=== PATIENT | male | born 1940 | race Caucasian/White ===

== ENCOUNTER 2018-07-27 10:30 | Outpatient (RCR) | payer MEDICARE, OTHER, SELFPAY ==
[2018-07-07 11:36] VITALS: BP 148/88; PULSE 90; RESP 18; TEMP 36.7
--- NOTE | 2018-07-07 12:16 | HP.PCM_ITS ---
(1) Traumatic open wound of right lower leg with delayed healing Status: Chronic Current Visit: Yes Code(s): S81.801D - Unspecified open wound, right lower leg, subsequent encounter (2) Ulcer of left lower extremity, limited to breakdown of skin Status: Chronic Current Visit: Yes Code(s): L97.921 - Non-pressure chronic ulcer of unspecified part of left lower leg limited to breakdown of skin (3) Type 2 diabetes mellitus Status: Chronic Current Visit: Yes Code(s): E11.9 - Type 2 diabetes mellitus without complications (4) Bilateral lower extremity edema Status: Chronic Current Visit: Yes Code(s): R60.0 - Localized edema History of Present Illness Chief Complaint: Nonhealing right lower extremity wound (traumatic). Left lower extremity ulcer. History of Wound: Mr. Church is a 78-year-old with past medical history as stated above who presented to the wound center due to delayed healing of his traumatic right lower extremity wound. Said to have started about a month ago when he fell off his bed and bumped his hutchinson against his walker and dresser. He was subsequently seen in the emergency room and had stitches applied with some part of the wound healing however the medial half has failed to heal. He states that at his facility silver dressing has been applied daily with some form of compression. He denies significant pain or drainage from the wound. He is unsure of his diabetes control. He feels well otherwise and denies chills, fever or feeling of unwell. Past Medical History Past Medical History: Chronic Problems Traumatic open wound of right lower leg with delayed healing (Chronic) Ulcer of left lower extremity, limited to breakdown of skin (Chronic) Type 2 diabetes mellitus (Chronic) Bilateral lower extremity edema (Chronic) Allergies/Adverse Reactions: Allergies No Known Allergies Allergy (Verified 07/07/18 11:36) Review of Systems Constitutional: Denies: Anorexia, Chills, Fever Eyes: Denies: Blurred vision HEENT: Denies: Difficulty Swallowing Cardiovascular: Denies: Chest Pressure Respiratory: Denies: Hemoptysis Gastrointestinal: Denies: Hematemesis, Vomiting Skin: Denies: Jaundice - Physical Exam Vital Signs Temp Pulse Resp BP 98.1 F 90 18 148/88 H 07/07/18 11:36 07/07/18 11:36 07/07/18 11:36 07/07/18 11:36 General: Alert, Oriented x3, Cooperative, No apparent distress HEENT: Atraumatic, Normocephalic Oral: Moist Mucosa Neck: Supple Lungs: Normal air movement Abdomen: Non Tender, Obese Extremities: No cyanosis, Edema Wound Measurements and Assessment WC - Nurse 1 - General Ulcer Measurement Start: 07/07/18 11:36 Freq: Status: Active Protocol: Activity Type Activity Date Activity User E-Sign Co-Sign Detail Recorded Client Recorded Date Recorded By Document 07/07/18 11:36 RB [id number] 07/07/18 11:40 RB 07/07/18 11:36 Wound Center Nurse 1 [Ulcer Assessment] 2. L medial LE -Combined with other wound No -Current Size (cm) - Length 1 -Current Size (cm) - Width 1 -Current Size (cm) - Depth 0.1 -Total Square Cm 1 -Photo Taken Yes -Tunneling No -Undermining/Tunneling No -Circular Undermining No -Exudate Amt Small -Exudate Type Serosanguineous -Wound Margin Distinct, Outline Attached -Granulation Amt Medium (34-66%) -Granulation Quality [place] -Slough/Fibrin Yes -Necrosis Amt Small (1-33%) -Necrotic Tissue Type Adherent Slough -Structure Exposed N/A -Texture (Mariia-wound Skin Appearance) Assessed Localized Edema -Moisture (Mariia-wound Skin Appearance Weeping ) -Color (Mariia-wound Skin Appearance) Assessed Hemosiderin Staining -Ulcer Cleansing Wound Cleanser -Foul Odor after Cleansing No -Anesthetic Used 5% Lidocaine Gel 1. R ant hutchinson -Combined with other wound No -Current Size (cm) - Length 3.7 -Current Size (cm) - Width 5 -Current Size (cm) - Depth 1.4 -Total Square Cm 18.5 -Photo Taken Yes -Tunneling No -Undermining/Tunneling No -Circular Undermining No -Exudate Amt Medium -Exudate Type Serosanguineous -Wound Margin Distinct, Outline Attached -Granulation Amt Medium (34-66%) -Granulation Quality [place] -Slough/Fibrin Yes -Necrosis Amt Large (67-100%) -Necrotic Tissue Type Adherent Slough -Structure Exposed N/A -Texture (Mariia-wound Skin Appearance) Assessed Localized Edema -Moisture (Mariia-wound Skin Appearance Weeping ) -Color (Mariia-wound Skin Appearance) Hemosiderin Staining -Temperature (Mariia-wound Skin No Abnormality Appearance) (Pt Warm) -Tenderness on Palpation (Mariia-wound No Skin Appearance) -Ulcer Cleansing Wound Cleanser -Foul Odor after Cleansing No -Anesthetic Used 5% Lidocaine Gel [Edema Assessment] -Lower Limb Edema Present Yes -Right Calf (cm) 49.5 -Right Ankle (cm) 27 -Left Calf (cm) 46.5 -Left Ankle (cm) 26 Musculoskeletal: No Muscle Wasting Neurological: Cranial nerves II-XII grossly intact Psych/Mental Status: Normal Affect Debridement Note Wound debrided: Right hutchinson Wound Grade/Stage: Stage III Type of Debridement: Excisional debridement Anesthesia Used: 4% Lidocaine Solution Depth: Down to and including healthy tissue, in the subcutaneous layer Percentage of wound debrided: 100 Instrument Used: 3mm curette Tissue Removed: Slough and devitalized tissue Severity: Fat Layer Exposed Amount of bleeding with debridement: Mild Bleeding Controlled with: Pressure Patient tolerated procedure well - Additional Wound Wound debrided: Left medial lower extremity Wound Grade/Stage: Page 2 Type of Debridement: Excisional debridement Anesthesia Used: 4% Lidocaine Solution Depth: Down to and including healthy tissue Percentage of wound debrided: 100 Instrument Used: 3mm curette Tissue Removed: Slough and devitalized tissue Severity: Limited To Skin Breakdown Amount of bleeding with debridement: Mild Bleeding Controlled with: Pressure Patient tolerated procedure: Patient tolerated procedure well Assessment/Plan Active Problems Traumatic open wound of right lower leg with delayed healing (Chronic) Ulcer of left lower extremity, limited to breakdown of skin (Chronic) Type 2 diabetes mellitus (Chronic) Bilateral lower extremity edema (Chronic) Assessment: Same as above. Plan: Debridement done as documented above. Procedure was well-tolerated. Cultures taken. Venous and arterial studies also ordered. Labs requested. Santyl to the right lower extremity and Aquacel extra to the left lower extremity both with Adaptic over top. Change daily. Surepress for edema management. Advised to elevate lower extremity when seated in bed. Increased protein intake recommended. He appears to be on some protein supplement already. Exercise and weight loss recommended. Optimal blood sugar control also recommended. Advised to follow-up with his primary care physician. His questions were answered and was advised to call with any further questions or concerns. Follow-up in 1 week. This note was generated with [employer] software. It may contain incorrect words, spelling, and punctuation that were no t noted in checking the note before signing.
--- NOTE | 2018-07-26 08:11 | VDLE_ITS ---
Reason For Study: ulcer, edema RIGHT LEFT CFV is compressible, spontaneous, phasic, FV is compressible, spontaneous, phasic, competent and demonstrates normal competent and demonstrates normal augmentation. augmentation. FV is compressible, spontaneous, phasic, POP V is compressible, spontaneous, phasic, competent and demonstrates normal competent and demonstrates normal augmentation. augmentation. POP V is compressible, spontaneous, phasic, T/P Trunk is compressible. competent and demonstrates normal PTV is compressible. augmentation. Unable to image Peroneal V due to Pt body T/P Trunk is compressible. habitus. PTV is compressible. Unable to compress CFVdue to pain for Pt. Unable to image Peroneal V due to Pt body Normal spontaneous and phasic flow noted. No habitus. DVT visualized. S-F Junction is competent. S-F Junction is competent. GSV is incompetent throughout for greater GSV is incompetent throughout for greater than .5 seconds. GSV measures .249 x .278 cm. thsn .5 seconds. GSV measures .24 x .28 cm. SSV is competent. SSV is competent. Procedure Exam performed in department. The exam was of fair technical quality due to pt body habitus. Interpretation Summary Deep veins of the lower extremities are bilaterally patent and compressible segmentally. There is no evidence of deep vein thrombosis on either side. Valvular competence appears intact within the proximal deep venous systems bilaterally. The greater saphenous veins appear bilaterally patent and compressible segmentally. The peroneal veins were not visualized bilaterally due to the patient's body habitus. The left common femoral vein was not compressed, due to pain inhibition, but appeared to be widely patent. Sapheno-femoral junctions are bilaterally competent . Segmental valvular incompetence is noted within the greater saphenous veins bilaterally. Small saphenous veins are patent and competent bilaterally. Ordering Physician: Jil Vela Performed By: Lalit Ga, RVT
--- NOTE | 2018-07-26 08:11 | ART_ITS ---
Reason For Study: PVD Left Segmental Pressures The left dorsalis pedis waveforms are triphasic. The left posterior tibial artery waveforms are triphasic. PT and DP are both noncompressible. Left brachial= 137mmHg. Left digit = 150 mmHg. Right Segmental Pressures The right posterior tibial artery waveforms are triphasic. The right dorsalis pedis waveforms are triphasic. PT and DP are both noncompressible. Right brachial= 134mmHg. Right digit = 109 mmHg. Indices The right digital-brachial index is .8. The left digital-brachial index is 1.09. Interpretation Summary Triphasic Doppler waveforms are noted at ankle level bilaterally. Pulse-volume recordings demonstrate satisfactory waveform amplitudes at all levels bilaterally. Resting ankle-brachial indices could not be determined due to the non-compressibility of the vasculature at ankle level bilaterally. Digital-brachial indices are bilaterally normal. There is evidence of arterial calcification within the arterial tree at ankle level bilaterally. However, there is no evidence of significant arterial occlusive disease in the lower extremities bilaterally. Ordering Physician: Jil Vela Performed By: CARTER REED T
== END 2018-07-28 23:59 ==
LOC: WC 10:30
PROVIDERS: Family Provider Family Medicine; PCP Family Medicine; Visit Provider Internal Medicine
DX: E11.622 Type 2 diabetes mellitus with other skin ulcer (principal); R60.0 Localized edema; E11.51 Type 2 diabetes mellitus with diabetic peripheral angiopathy without gangrene; W22.03XA Walked into furniture, initial encounter; L97.821 Non-pressure chronic ulcer of other part of left lower leg limited to breakdown of skin; S81.831A Puncture wound without foreign body, right lower leg, initial encounter
CPT/HCPCS: 11042; 11045; 87070; 87075; 87076; 87077; 87205; 93923; 93970; 99203; G0463

== ENCOUNTER 2018-08-03 12:44 | Inpatient (IN) | payer MEDICARE, OTHER, SELFPAY ==
[2018-08-03] VITALS (8 sets, daily range): BP systolic 123–145; BP diastolic 58–81; PULSE 73–94; RESP 16–20; TEMP 36.9–37.1; O2SAT 96–99; BMI 47.9; BMI 47.0
--- NOTE | 2018-08-03 12:56 | VDLE_ITS ---
Reason For Study: LEG SWELLING RIGHT CFV is compressible, spontaneous, phasic, competent and demonstrates normal augmentation. FV is compressible, spontaneous, phasic, competent and demonstrates normal augmentation. POP V is compressible, spontaneous, phasic, competent and demonstrates normal augmentation. T/P Trunk is compressible. PTV is compressible. RT PerV is compressible. GSV not imaged. Procedure Exam performed portable in ED. A preliminary report was called and/or faxed to Dr. Burrows. Interpretation Summary Deep veins of the right lower extremity are patent and compressible segmentally. There is no evidence of right lower extremity deep vein thrombosis. Valvular competence appears intact within the proximal deep venous system on the right . The right great saphenous vein was not imaged. Ordering Physician: Lee Turner Referring Physician: Matthieu Angelo Performed By: Cristal Howard RVT
--- NOTE | 2018-08-03 13:05 | ED.DCSUM_ITS ---
- ER Visit Summary Date of Service: 08/03/18 Chief Complaint: Right knee and calf pain/swelling History of Present Illness: The patient is a 78 M presenting with the above complaint. He suffered a mechanical fall 4 days ago when he tripped on his oxygen cord. He has since developed right knee pain and swelling in his calf. He states that the impact was directly on his right knee. He did not hit his head or lose consciousness. Denies any other injuries. Has no ankle pain or paresthesias. He does take Eliquis chronically. He went to wound care today and was evaluated by the physician. He was felt to have a right lower extremity cellulitis and referred to the emergency department for admission. Physical Examination: He has tenderness on palpation of the right knee with ecchymosis extending all the way to his ankle. Mild tenderness midshaft tibia but compartments are soft. Strong distal pulse. He has several wounds on the right leg anteriorly and erythema/warmth associated. The erythema and warmth extends to the distal thigh. Test Results: CBC reveals a hemoglobin of 8.7. Chemistry panel unremarkable except for a CO2 of 39. Right leg and knee plain films both negative except for soft tissue swelling. Ultrasound negative for VT. He was observed and had no rapid progression of his erythema/warmth to suggest necrotizing fasciitis but he does appear to have a secondary cellulitis, is diabetic, and is on chronic prednisone. I do therefore feel that he meets criteria for admission and IV antibiotics. Emergency Department Course and Treatment: IV cefazolin after discussion with the admitting physician Treatment Plan: Admit for IV antibiotics Disposition: Impression: Right lower extremity cellulitis This note was generated with [employer] dictation software. It may contain incorrect words, spelling, and punctuation that were not noted in review of the chart prior to signing ED Disposition - Plan for ED Patient: Referrals: Matthieu Angelo MD [Primary Care Provider] -
--- NOTE | 2018-08-03 13:15 | RAD_ITS ---
STUDY: X-RAY - RIGHT KNEE REASON FOR EXAM: Male, 78 years old. Swelling and pain. TECHNIQUE: AP and lateral view(s) of the knee. COMPARISON: None. FINDINGS: Normal visualized distal femur. Normal visualized proximal tibia and fibula. Normal proximal tibiofibular articulation. The patient is status post total knee replacement. There is good alignment. Diffuse soft tissue swelling. Small joint effusion. RAD/Knee 1 or 2 Views IMPRESSION: Diffuse soft tissue swelling. Small joint effusion. Status post total knee replacement. Electronically Signed: Michael Michaud MD at 14:04 EST , Service support ,
--- NOTE | 2018-08-03 13:15 | RAD_ITS ---
STUDY: X-RAY - RIGHT TIBIA AND FIBULA REASON FOR EXAM: Male, 78 years old. Pain and swelling. TECHNIQUE: 2 view(s) of the tibia and fibula were obtained. COMPARISON: None. FINDINGS: Normal visualized tibia. Normal visualized fibula. Diffuse soft tissue swelling. RAD/Tibia & Fibula 2 Views IMPRESSION: Diffuse soft tissue swelling. Electronically Signed: Michael Michaud MD at 14:05 EST , Service support ,
[2018-08-03 15:23] LABS: Absolute Lymphocyte Count 0.92 X10^3/ul (0.83-4.51); Basophil# 0.02 X10^3/uL; Basophil% 0.2 % (0-1); Eosinophils% 0.9 % (0-5); Hematocrit 28.6 % (40-54); Hemoglobin 8.7 g/dl (13.0-16.5); Lymphocyte # 0.92 X10^3/ul (4.0); Lymphocyte % 8.7 % (19-41); Mean Corp Hgb Conc 30.4 g/gl (32-36); Mean Corpuscular Hgb 29.5 pg (27.0-32.0); Mean Corpuscular Volume 96.9 fL (80-94); Mean Platelet Vol. 9.7 fl (6.2-12.0); Monocyte# 1.48 X10^3/uL; Monocyte% 13.9 % (0-10); Neutrophil # 7.99 X10^3/uL (2.7-7.7); Neutrophil % 75.4 % (47-70); Platelet Count 165 K/mm3 (150-450); RBC Distribution Width CV 15.1 % (11.6-14.6); RBC Distribution Width SD 53.1 fl (35.1-43.9); Red Blood Count 2.95 M/mm3 (4.6-6.2); White Blood Count 10.6 K/mm3 (4.4-11.0)
--- NOTE | 2018-08-03 15:25 | HP.PCM_ITS ---
Problem List (1) Traumatic open wound of right lower leg with delayed healing Status: Chronic (2) Ulcer of left lower extremity, limited to breakdown of skin Status: Chronic (3) Type 2 diabetes mellitus Status: Chronic (4) Bilateral lower extremity edema Status: Chronic (5) Cellulitis of right lower extremity Status: Acute (6) COPD (chronic obstructive pulmonary disease) Status: Chronic Qualifiers: COPD type: unspecified COPD Qualified Code(s): J44.9 - Chronic obstructive pulmonary disease, unspecified History of Present Illness Date of Admission: 08/03/18 Chief Complaint: Leg swelling - days The patient is a 78 year old M with past medical history of morbid obesity, COPD on 2 L of oxygen, hypertension, hyperlipidemia, type II DM, on insulin, chronic atrial fibrillation on Eliquis who comes in,referred from the wound center for right lower extremity swelling and redness. Patient had fallen down a couple of days earlier on. He is a resident in an assisted living facility. He had tripped over his oxygen cord bruised his right lower extremity. He notes his redness and some bruising over his legs, and since he had an appointment with the wound center coming up, he decided to follow-up. He was seen in the wound center and was referred to come to the emergency department. Denied any fever or chills or dizziness or chest pain or palpitations. He did notice that he was having generalized edema. He admits to PND, orthopnea. He follows with the cardiology group in [facility]. Vitals in ED show temp of 98.6F, heart rate was 94, blood pressure 125/81, resp iratory rate was 16, SPO2 is 98% on 2 L. Admitting labs show WBC 10.6, Hb 8.7, Plt 165, sodium 143, potassium 3.5, chloride 99, carbonate 39, BUN 18, creatinine 0.84. Right knee x-ray showed diffuse soft tissue swelling, no fractures. Right tibia-fibula x-ray is showed diffuse soft tissue swelling, no fractures Past Medical History Past Medical History (Chronic Problems): Chronic Problems Traumatic open wound of right lower leg with delayed healing (Chronic) Ulcer of left lower extremity, limited to breakdown of skin (Chronic) Type 2 diabetes mellitus (Chronic) Bilateral lower extremity edema (Chronic) COPD (chronic obstructive pulmonary disease) (Chronic) Allergies No Known Allergies Allergy (Verified 08/03/18 14:00) Home Medications: Ambulatory Orders Medication Instructions Recorded Alendronate Sodium [Fosamax] 70 mg PO TEMPLE 07/07/18 Amino Acids/Protein Hydrolys 30 ml PO BID 07/07/18 [Prosource No Carb Liquid Pkt] Amlodipine [Norvasc] 5 mg PO DAILY 07/07/18 Apixaban [Eliquis] 5 mg PO BID 07/07/18 Atorvastatin Calcium [Lipitor] 40 mg PO QHS 07/07/18 Doxycycline 100 mg PO BID 07/07/18 Duloxetine HCl 30 mg PO BID 07/07/18 Dutasteride/Tamsulosin HCl 1 each PO DAILY 07/07/18 [Dutasteride-Tamsulosin 0.5-0.4] Ferrous Sulfate 325 mg PO DAILY 07/07/18 Fluticasone/Vilanterol [Breo 1 each IH DAILY 07/07/18 Ellipta 200-25 Mcg INH] Furosemide [Lasix] 40 mg PO BIDLX 07/07/18 Insulin Glargine,Hum.rec.anlog 38 unit SQ QHS 07/07/18 [Lantus] Ipratropium/Albuterol Sulfate 3 ml IH Q4H PRN PRN 07/07/18 [Iprat-Albut 0.5-3(2.5) mg/3 ml] Metformin HCl [Glucophage] 1,000 mg PO BIDCM 07/07/18 Metoprolol(XL)Succ [Toprol Xl 50 mg PO DAILY 07/07/18 (Beta Gamal)] Montelukast [Singulair] 10 mg PO DAILY 07/07/18 Omeprazole [Prilosec] 20 mg PO DAILY 07/07/18 Oxybutynin [Ditropan] 5 mg PO DAILY 07/07/18 Potassium Chloride [K-Dur] 10 meq PO DAILY 07/07/18 Prednisone 20 mg PO DAILY@1200 07/07/18 Pregabalin [Lyrica] 200 mg PO BID 07/07/18 Sitagliptin Phosphate [Januvia] 100 mg PO DAILY 07/07/18 Triamcinolone 0.025% Cream 1 applic TOPICAL BID 07/07/18 [Kenalog] traZODone [Desyrel] 100 mg PO QHS 07/07/18 Acetaminophen [Tylenol Extra 1,000 mg PO Q8H PRN PRN 08/03/18 Strength] Acetaminophen [Tylenol Extra 500 mg PO TID PRN PRN 08/03/18 Strength] Collagenase [Santyl] 1 applic TOPICAL DAILY 08/03/18 Guaifenesin [Mucinex] 1,200 mg PO BID 08/03/18 Ibuprofen [Advil] 600 mg PO Q4H PRN PRN 08/03/18 Lactobacillus Acidophilus 1 cap PO BID 08/03/18 [Acidophilus] Melatonin 10 mg PO QHS 08/03/18 traMADol [Ultram (G)] 100 mg PO TID 08/03/18 Surgical History: total hip arthroplasty, total knee arthroplasty - Bilateral Psychiatric History: Depression Lives: - - Assisted living facility Smoking Status: Former smoker Tobacco Use: Non-smoker Alcohol: None Drugs: None - *Family History Maternal History Items: Diabetes, Heart Disease Paternal History Items: Heart Disease Review of Systems Constitutional: Denies: Anorexia, Chills, Fever, Weakness, Weight Change Eyes: Denies: Blurred vision, Cataracts, Conjunctivae Inflammation, Double vision, Pain, Vision Change HEENT: Denies: Difficulty Hearing, Difficulty Swallowing, Head Aches, Hearing Changes, Sinus Congestion, Sinus Drainage Cardiovascular: Denies: Chest Pain, Claudication, Orthopnea, Palpitations Respiratory: Denies: Cough, Hemoptysis, Shortness of breath at rest, Shortness of breath upon exertion, Sputum production Gastrointestinal: Denies: Abdominal Pain, Hematemesis, Hematochezia, Nausea, Vomiting Genitourinary: Denies: Dysuria, Frequency, Incontinence Musculoskeletal: Reports: Leg Pain. Denies: Joint Pain, Joint stiffness, Joint swelling, Joint Tenderness Skin: Reports: Skin Changes, Wounds - chronic. Denies: Pruritis, Rash Neurological: Denies: Difficulty swallowing, Focal weakness, Numbness, Tingling Psychiatric: Denies: Anxiety, Depression, Homicidal Ideations, Suicidal Ideations Hematologic/ Lymphatic: Denies: Easy Bruising, Easy Bleeding VTE Information - Inpt Only VTE Present on Admission: No VTE Pharm Prophylaxis ordered?: Yes Patient Problems: Active and Suspected Problems Cellulitis of right lower extremity (Acute) - Physical Exam General: Alert, Oriented x3, Cooperative, No apparent distress, - - On 2 L of oxygen HEENT: Atraumatic, PERRLA, EOMI, Normocephalic Oral: Moist Mucosa Neck: Supple, No JVD, Negative Carotid Bruits Lungs: Normal air movement, Diminished Cardiovascular: Regular rate, Regular Rhythm, Normal S1, Normal S2, No murmurs Abdomen: Bowel Sounds Present, Soft, Non Tender, Non-Distended, No Hepato-splenomegaly, Obese Extremities: Edema - Generalized edema, +3-+4 in both upper extremities and lower extremity Skin: No breakdown, - - Bruising over the right lower leg and thigh, erythema of the skin, differential warmth, Chronic ulcers over the right lower extremities, venous, about 2, measures about 5 x 6 cm each, no slough seen, minimal discharge, serosanguineous Musculoskeletal: No Tenderness to Palpation of Joints or Extremities Lymphatic: No Cervical, Supraclavicular, or Inguinal Adenopathy Neurological: Cranial nerves II-XII grossly intact Psych/Mental Status: Normal Affect, Appropriate Vital Signs Temp Pulse Resp BP Pulse Ox 98.7 F 81 18 128/67 H 99 08/03/18 13:56 08/03/18 15:01 08/03/18 15:01 08/03/18 15:01 08/03/18 15:01 Oxygen Flow Rate (L/min) 2 Oxygen Delivery Method Nasal Cannula Weight: 151.6 kg Body Mass Index (BMI) 47.9 Laboratory Tests Past 24 Hrs 08/03/18 08/03/18 15:00 15:00 WBC Pending RBC Pending Hgb Pending Hct Pending MCV Pending MCH Pending MCHC Pending RDW Pending RDW Differential Pending Plt Count Pending Neut % (Auto) Pending Absolute Neuts (auto) Pending Total Counted Pending Sodium Pending Potassium Pending Chloride Pending Carbon Dioxide Pending Anion Gap Pending BUN Pending Creatinine Pending Est GFR (MDRD) Af Amer Pending Est GFR (MDRD) Non-Af Pending BUN/Creatinine Ratio Pending Glucose Pending Calcium Pending Assessment/Plan All Active Problems Cellulitis of right lower extremity (Acute) 78 year old M with past medical history of morbid obesity, COPD on 2 L of oxygen, hypertension, hyperlipidemia, type II DM, on insulin, chronic atrial fibrillation on Eliquis who comes in, referred from the wound center for right lower extremity swelling and redness. 1. Right lower extremity cellulitis, without sepsis, status post recent fall, presence of chronic ulcers [facility], IV cefazolin, ID consult, IV diuretics 2. Chronic ulcers, venous, likely related to bilateral leg edema, follows up with wound center, will consult wound nurse 3. Generalized edema, patient denies history of CHF, follows up with cardiology in the outpatient, suspect diastolic CHF, will get 2D echo, hold home ibuprofen, hold amlodipine - could be contributing to leg edema, Follow-up with CHF protocol 4. Hypertension, controlled, continue on metoprolol, will hold amlodipine on account of lower extremity edema, continue to monitor vitals 5. Type II DM, on Januvia, Metformin and Lantus insulin, We will hold metformin, will continue same home dose of Lantus and Januvia 6. Morbid obesity, BMI 48.0, diet and exercise is recommended 7. Chronic atrial fibrillation, rate controlled, on Eliquis 8. Hyperlipidemia, on statin, will continue same 9. COPD with chronic hypoxic respiratory failure, on 2 L oxygen, continue on Breo, breathing treatment, Singulair, prednisone 10. Depression, on trazodone 11. DVT PPx- on Apixaban Code Visit Inpatient E&M: 27286 Init Hosp L3
[2018-08-03 15:26] LABS: POSITIVE COUNT NO; POSITIVE DIFFERENTIAL NO; POSITIVE MORPHOLOGY NO
[2018-08-03 15:32] LABS: Anion Gap 5 (5-15); BUN 18 mg/dL (7-18); BUN/Creat Ratio 21.5 RATIO (10-20); Calcium,Total 7.7 mg/dL (8.5-10.1); Chloride 99 mmol/L (98-107); Creatinine, Serum 0.84 mg/dL (0.70-1.30); EST Glomerular Filtration Rate 94 mL/min (>60); Est Glom Filt Rate - Afr Amer 114 mL/min (>60); Estimated Creatinine Clearance 74.83 ml/min; Glucose 164 mg/dL (74-106); Potassium 3.5 mmol/L (3.5-5.1); Sodium Level 143 mmol/L (136-145)
--- NOTE | 2018-08-03 16:04 | ECHOCS_ITS ---
Reason For Study: CHF Procedure This was a 2D Doppler, Color Flow transthoracic echocardiogram. Exam performed portable in patient room. Left Ventricle Normal size and thickness. The estimated ejection fraction is 65 %. Stage 1 diastolic dysfunction. Septal motion consistent with IVCD. No regional wall motion abnormalities noted. Right Ventricle Normal size and thickness. Normal systolic function. Atria Normal left atrium. Normal right atrium. Normal atrial septum. Mitral Valve The mitral valve is structurally normal. No prolapse or stenosis seen. Tricuspid Valve Normal tricuspid valve. Unable to estimate RV systolic pressure due to inadequate jet, pulmonary artery pressure probably normal. Unable to estimate RV systolic pressure/pulmonary artery pressure due to technically difficult study. Aortic Valve Normal aortic valve. Trisinus/trileaflet aortic valve. Pulmonic Valve Normal pulmonic valve. Trivial pulmonic valve insufficiency. Great Vessels Normal aortic root. Normal arch. Normal inferior vena cava. Inferior vena cava collapse with sniff. Pericardium/Pleural No pericardial effusion. Medication Diluted definity 3ml given slow IV push to enhance endocardial definition. MMode/2D Measurements & Calculations LVIDd: 5.4 cm IVSd: 1.0 cm Ao root diam: 3.3 cm LVIDs: 3.9 cm LVPWd: 1.0 cm FS: 27.5 % LA dimension(2D): 5.1 cm Doppler Measurements & Calculations MV E max avelino: 102.3 cm/sec Ao V2 max: 179.6 cm/sec LV V1 max: 151.3 cm/sec Ao max P.1 mmHg LV V1 max P.2 mmHg PA V2 max: 131.4 cm/sec Interpretation Summary The estimated ejection fraction is 65 %. Stage 1 diastolic dysfunction. Unable to estimate RV systolic pressure due to inadequate jet, pulmonary artery pressure probably normal. Unable to estimate RV systolic pressure/pulmonary artery pressure due to technically difficult study. There is no comparison study available. Contrast injection was performed. The study was technically difficult. Ordering Physician: Ashtyn Yuan Performed By: Helena Eisenberg RDCS
[2018-08-03] MEDS: Cefazolin 1 GM/50 ML BAG IV ×2 (16:08→23:02)
--- NOTE | 2018-08-03 16:11 | ED.RN ---
pt refuses gown
[2018-08-03 16:37] LABS: Bedside Glucose 159 mg/dL (70-110)
[2018-08-03 17:10] LABS: AST(SGOT) 17 U/L (15-37); Alanine Aminotransfer ALT/SGPT 20 U/L (16-61); Albumin, Serum 2.8 g/dL (3.2-5.0); Alkaline Phosphatase 112 U/L (45-117); Bilirubin, Direct 0.18 mg/dL (0.00-0.30); Globulin 2.8 g/dL (2.2-4.2); Iron 30 ug/dL (65-175); Iron Binding Capacity,Total 245 ug/dL (250-450); PERCENT IRON SATURATION 12.2 % (15.0-55.0); Protein, Total 5.6 g/dL (6.4-8.2)
[2018-08-03] MEDS: Insulin Lispro 100 UNIT/ML INSULN.PEN SQ ×2 (18:05→23:11)
[2018-08-03] MEDS: Tamsulosin HCl 0.4 MG Capsule PO (18:05)
[2018-08-03] MEDS: Furosemide 40 MG/4 ML Vial IV (18:05)
[2018-08-03] MEDS: Acetaminophen 500 MG Tablet 1000 MG PO (18:08)
[2018-08-03] MEDS: Albuterol 2.5 MG/3 ML VIAL.NEB. INHALATION (18:43)
[2018-08-03] MEDS: Budesonide Respules 0.5 MG/2 ML AMPUL.NEB. INHALATION (18:44)
[2018-08-03 19:41] LABS: M R Staph aureus DNA By PCR Negative (Negative); Probe Check PASS; Specimen Processing Control PASS; Staph aureus DNA By PCR NEGATIVE (Negative)
[2018-08-03] MEDS: Atorvastatin Calcium 40 MG Tablet PO (20:40)
[2018-08-03] MEDS: Pregabalin 50 MG Capsule 200 MG PO (20:41)
[2018-08-03] MEDS: traMADol 50 MG Tablet 100 MG PO (20:41)
[2018-08-03] MEDS: APIXABAN 5 MG TABLET PO (20:42)
[2018-08-03] MEDS: DULoxetine Hcl 30 MG Capsule PO (20:42)
[2018-08-03] MEDS: traZODone 100 MG Tablet PO (23:10)
[2018-08-03] MEDS: MELATONIN 3 MG TABLET 6 MG PO (23:58)
[2018-08-04] VITALS (9 sets, daily range): BP systolic 130–154; BP diastolic 59–85; PULSE 84–103; RESP 18–24; TEMP 36.4–37.4; O2SAT 96–100
[2018-08-04 00:16] LABS: Bedside Glucose 231 mg/dL (70-110)
[2018-08-04 06:17] LABS: Absolute Lymphocyte Count 0.95 X10^3/ul (0.83-4.51); Absolute Neutrophil Count 6.7 X10^3/uL (2.0-7.7); Basophil# 0.03 X10^3/uL; Basophil% 0.3 % (0-1); Eosinophil# 0.13 X10^3/uL; Eosinophils% 1.4 % (0-5); Hematocrit 32.3 % (40-54); Hemoglobin 9.6 g/dl (13.0-16.5); Lymphocyte # 0.95 X10^3/ul (4.0); Lymphocyte % 10.4 % (19-41); Mean Corp Hgb Conc 29.7 g/gl (32-36); Mean Corpuscular Hgb 29.5 pg (27.0-32.0); Mean Corpuscular Volume 99.4 fL (80-94); Mean Platelet Vol. 10.1 fl (6.2-12.0); Monocyte% 13.1 % (0-10); Neutrophil # 6.74 X10^3/uL (2.7-7.7); Neutrophil % 73.8 % (47-70); Platelet Count 183 K/mm3 (150-450); RBC Distribution Width CV 14.8 % (11.6-14.6); RBC Distribution Width SD 51.2 fl (35.1-43.9); Red Blood Count 3.25 M/mm3 (4.6-6.2); White Blood Count 9.1 K/mm3 (4.4-11.0)
[2018-08-04 06:23] LABS: Anion Gap 6 (5-15); BUN 16 mg/dL (7-18); BUN/Creat Ratio 19.5 RATIO (10-20); Calcium,Total 7.6 mg/dL (8.5-10.1); Chloride 100 mmol/L (98-107); Creatinine, Serum 0.82 mg/dL (0.70-1.30); EST Glomerular Filtration Rate 96 mL/min (>60); Est Glom Filt Rate - Afr Amer 117 mL/min (>60); Estimated Creatinine Clearance 79.08 ml/min; Glucose 153 mg/dL (74-106); Potassium 3.6 mmol/L (3.5-5.1); Sodium Level 141 mmol/L (136-145)
[2018-08-04 06:27] LABS: POSITIVE COUNT NO; POSITIVE DIFFERENTIAL NO; POSITIVE MORPHOLOGY NO
[2018-08-04] MEDS: Cefazolin 1 GM/50 ML BAG IV ×3 (06:34→22:08)
[2018-08-04] MEDS: traMADol 50 MG Tablet 100 MG PO ×3 (06:35→22:10)
[2018-08-04] MEDS: Insulin Lispro 100 UNIT/ML INSULN.PEN SQ ×4 (06:37→22:26)
[2018-08-04 06:57] LABS: Bedside Glucose 155 mg/dL (70-110)
[2018-08-04] MEDS: Acetaminophen 500 MG Tablet 1000 MG PO ×3 (06:58→22:10)
[2018-08-04] MEDS: Budesonide Respules 0.5 MG/2 ML AMPUL.NEB. INHALATION ×2 (07:08→18:58)
[2018-08-04] MEDS: Albuterol 2.5 MG/3 ML VIAL.NEB. INHALATION ×3 (07:08→18:58)
--- NOTE | 2018-08-04 08:07 | NURSING ---
wound photo: right knee
--- NOTE | 2018-08-04 08:07 | NURSING ---
wound photo: right medial hutchinson
--- NOTE | 2018-08-04 09:59 | NURSING ---
just assumed care of this pt
[2018-08-04] MEDS: Pantoprazole Sodium 20 MG Tablet PO (10:14)
[2018-08-04] MEDS: LINAGLIPTIN 5 MG TABLET PO (10:14)
[2018-08-04] MEDS: Oxybutynin 5 MG Tablet PO (10:14)
[2018-08-04] MEDS: APIXABAN 5 MG TABLET PO ×2 (10:14→22:10)
[2018-08-04] MEDS: Metoprolol(XL)Succ 50 MG Tablet PO (10:14)
[2018-08-04] MEDS: Furosemide 40 MG/4 ML Vial IV (10:15)
[2018-08-04] MEDS: Ferrous Sulfate 325 MG Tablet PO (10:15)
[2018-08-04] MEDS: DULoxetine Hcl 30 MG Capsule PO ×2 (10:15→22:09)
[2018-08-04] MEDS: Pregabalin 50 MG Capsule 200 MG PO ×2 (10:15→22:09)
[2018-08-04] MEDS: predniSONE 20 MG Tablet PO (10:15)
[2018-08-04] MEDS: Finasteride 5 MG Tablet PO (10:15)
--- NOTE | 2018-08-04 10:23 | PCM.HP.ID ---
Problem List (1) Traumatic open wound of right lower leg with delayed healing Status: Chronic Reason for Consult: cellulitis Consulted by: Dr. Villarreal History of Present Illness: The patient is a 78 year old M with chronic BLE edema who presented with leg soreness and non-healing wounds s/p fall a few days ago. No fever, some serosanguinous drainage. Some surrounding bruising. No recent new abx. Takes doxy chronically for his lungs. Seen in wound care 08/03, sent to hospital. Cefazolin started. Pain mildly improved. Full ROS performed and neg except as noted above. - Medical History Past Medical History (Chronic Problems): Chronic Problems Traumatic open wound of right lower leg with delayed healing (Chronic) Ulcer of left lower extremity, limited to breakdown of skin (Chronic) Type 2 diabetes mellitus (Chronic) Bilateral lower extremity edema (Chronic) COPD (chronic obstructive pulmonary disease) (Chronic) Allergies/Adverse Reactions: Allergies No Known Allergies Allergy (Verified 08/03/18 14:00) Home Medications: Ambulatory Orders Medication Instructions Recorded Alendronate Sodium [Fosamax] 70 mg PO TEMPLE 07/07/18 Amino Acids/Protein Hydrolys 30 ml PO BID 07/07/18 [Prosource No Carb Liquid Pkt] Amlodipine [Norvasc] 5 mg PO DAILY 07/07/18 Apixaban [Eliquis] 5 mg PO BID 07/07/18 Atorvastatin Calcium [Lipitor] 40 mg PO QHS 07/07/18 Doxycycline 100 mg PO BID 07/07/18 Duloxetine HCl 30 mg PO BID 07/07/18 Dutasteride/Tamsulosin HCl 1 each PO DAILY 07/07/18 [Dutasteride-Tamsulosin 0.5-0.4] Ferrous Sulfate 325 mg PO DAILY 07/07/18 Fluticasone/Vilanterol [Breo 1 each IH DAILY 07/07/18 Ellipta 200-25 Mcg INH] Furosemide [Lasix] 40 mg PO BIDLX 07/07/18 Insulin Glargine,Hum.rec.anlog 38 unit SQ QHS 07/07/18 [Lantus] Ipratropium/Albuterol Sulfate 3 ml IH Q4H PRN PRN 07/07/18 [Iprat-Albut 0.5-3(2.5) mg/3 ml] Metformin HCl [Glucophage] 1,000 mg PO BIDCM 07/07/18 Metoprolol(XL)Succ [Toprol Xl 50 mg PO DAILY 07/07/18 (Beta Gamal)] Montelukast [Singulair] 10 mg PO DAILY 07/07/18 Omeprazole [Prilosec] 20 mg PO DAILY 07/07/18 Oxybutynin [Ditropan] 5 mg PO DAILY 07/07/18 Potassium Chloride [K-Dur] 10 meq PO DAILY 07/07/18 Prednisone 20 mg PO DAILY@1200 07/07/18 Pregabalin [Lyrica] 200 mg PO BID 07/07/18 Sitagliptin Phosphate [Januvia] 100 mg PO DAILY 07/07/18 traZODone [Desyrel] 100 mg PO QHS 07/07/18 Acetaminophen [Tylenol Extra 1,000 mg PO Q8H PRN PRN 08/03/18 Strength] Acetaminophen [Tylenol Extra 500 mg PO TID PRN PRN 08/03/18 Strength] Collagenase [Santyl] 1 applic TOPICAL DAILY 08/03/18 Guaifenesin [Mucinex] 1,200 mg PO BID 08/03/18 Ibuprofen [Advil] 600 mg PO Q4H PRN PRN 08/03/18 Lactobacillus Acidophilus 1 cap PO BID 08/03/18 [Acidophilus] Melatonin 10 mg PO QHS 08/03/18 traMADol [Ultram (G)] 100 mg PO TID 08/03/18 - Social History SMOKING STATUS:: Former smoker Vital Signs Temp Pulse Resp BP Pulse Ox 99.3 F H 94 18 154/85 H 96 08/04/18 10:12 08/04/18 10:12 08/04/18 10:12 08/04/18 10:12 08/04/18 10:12 Oxygen Flow Rate (L/min) 2 Oxygen Delivery Method Nasal Cannula Weight: 139.4 kg Body Mass Index (BMI) 47.0 Microbiology Past 72 Hours 08/03/18 17:25 Gram Stain - Final Wound - Leg, Right Laboratory Tests Past 24 Hrs 08/03/18 08/03/18 08/03/18 15:00 15:00 15:00 WBC 10.6 RBC 2.95 L Hgb 8.7 L Hct 28.6 L MCV 96.9 H MCH 29.5 MCHC 30.4 L RDW 15.1 H RDW Differential 53.1 H Plt Count 165 MPV 9.7 Immature Gran % (Auto) 0.900 Neut % (Auto) 75.4 H Lymph % (Auto) 8.7 L [place] % (Auto) 13.9 H Eos % (Auto) 0.9 Baso % (Auto) 0.2 Absolute Neuts (auto) 8.0 H Absolute Lymphs (auto) 0.92 Total Counted Not Reportable Sodium 143 Potassium 3.5 Chloride 99 Carbon Dioxide 39.0 H Anion Gap 5 BUN 18 Creatinine 0.84 Estim Creat Clear Calc 74.83 Est GFR (MDRD) Af Amer 114 Est GFR (MDRD) Non-Af 94 BUN/Creatinine Ratio 21.5 H Glucose 164 H Calcium 7.7 L Iron 30 L TIBC 245 L Iron Saturation 12.2 L Total Bilirubin 0.70 Direct Bilirubin 0.18 AST 17 ALT 20 Alkaline Phosphatase 112 Total Protein 5.6 L Albumin 2.8 L Globulin 2.8 S.aureus Protein A PCR MRSA (PCR) 08/03/18 08/04/18 08/04/18 17:25 05:16 05:16 WBC 9.1 RBC 3.25 L Hgb 9.6 L Hct 32.3 L MCV 99.4 H MCH 29.5 MCHC 29.7 L RDW 14.8 H RDW Differential 51.2 H Plt Count 183 MPV 10.1 Immature Gran % (Auto) 1.000 H Neut % (Auto) 73.8 H Lymph % (Auto) 10.4 L [place] % (Auto) 13.1 H Eos % (Auto) 1.4 Baso % (Auto) 0.3 Absolute Neuts (auto) 6.7 Absolute Lymphs (auto) 0.95 Total Counted Not Reportable Sodium 141 Potassium 3.6 Chloride 100 Carbon Dioxide 35.0 H Anion Gap 6 BUN 16 Creatinine 0.82 Estim Creat Clear Calc 79.08 Est GFR (MDRD) Af Amer 117 Est GFR (MDRD) Non-Af 96 BUN/Creatinine Ratio 19.5 Glucose 153 H Calcium 7.6 L Iron TIBC Iron Saturation Total Bilirubin Direct Bilirubin AST ALT Alkaline Phosphatase Total Protein Albumin Globulin S.aureus Protein A PCR NEGATIVE MRSA (PCR) Negative - Other Studies Radiology: [] reviewed Other Studies: [] Route of nutrition/ use of supplements: [] Nutritional Intake: [] IV Site: [] Garcia Catheter: [] - Physical Exam General: Alert, Cooperative, No apparent distress HEENT: Atraumatic, PERRLA, EOMI Neck: Supple, No Nodes Lungs: Clear to auscultation, Normal air movement Cardiovascular: Irregular Rate Abdomen: Soft, Non Tender, Non-Distended, Obese Extremities: Edema Skin: Ulcer/ Wound - RLE with 2 wounds, surrounding bruising IV Site: Peripheral, without redness Musculoskeletal: No Tenderness to Palpation of Joints or Extremities - Assessment/Plan Antibiotics: [] Assessment/Plan: [] Active and Suspected Problems Cellulitis of right lower extremity (Acute) Not clear if this is infected. Normal wbc, no fever, relatively stable symptoms since his fall. No purulence or necrosis on wounds, minimal tenderness. Wound gram stain with only rare GPC and GNR. Continue cefazolin for now. Will follow, thank you, d/w wound care.
--- NOTE | 2018-08-04 10:35 | PCM.PN.HOSP ---
Patient Problems: Active and Suspected Problems Cellulitis of right lower extremity (Acute) Subjective: Patient stated that his leg wound occurred after a fall with his walker back in April. Vitals/I&O's: Vital Signs Temp Pulse Resp BP Pulse Ox 37.4 C H 96 18 154/85 H 96 08/04/18 10:12 08/04/18 10:14 08/04/18 10:12 08/04/18 10:12 08/04/18 10:12 Oxygen Flow Rate (L/min) 2 Oxygen Delivery Method Nasal Cannula Weight: 139.4 kg Body Mass Index (BMI) 47.0 Intake and Output for Last 24 Hours 08/02/18 08/03/18 08/04/18 23:59 23:59 23:59 Intake Total 533 / 533 Output Total 800 / 800 Balance -267 / -267 General: Alert, Cooperative, No apparent distress HEENT: Atraumatic, Normocephalic Oral: Moist Mucosa, No Gingival or Mucosal Lesions/ Ulcerations Neck: No Nodes, Thyroid Normal Size and Texture Lungs: Clear to auscultation, Normal air movement, No rhonchi, No wheeze Cardiovascular: Regular rate, Regular Rhythm, Normal S1, Normal S2 Abdomen: Bowel Sounds Present, Soft, Non Tender, Non-Distended, Obese Extremities: No Calf Tenderness, Edema - Right lower extremity Skin: - - Wedge shaped wound anterior right hutchinson. Is a defect in there. No purulence was expressed, no foul odor. Market erythema of the distal lower extremity around the knee to the ankle. Does have a superficial his right knee. Psych/Mental Status: Normal Affect, Appropriate Microbiology Past 72 Hours 08/03/18 17:25 Wound - Leg, Right Gram Stain - Final Laboratory Results 08/03/18 15:00: WBC 10.6, RBC 2.95 L, Hgb 8.7 L, Hct 28.6 L, MCV 96.9 H, MCH 29.5, MCHC 30.4 L, RDW 15.1 H, RDW Differential 53.1 H, Plt Count 165, MPV 9.7, Immature Gran % (Auto) 0.900, Neut % (Auto) 75.4 H, Lymph % (Auto) 8.7 L, Person % (Auto) 13.9 H, Eos % (Auto) 0.9, Baso % (Auto) 0.2, Absolute Neuts (auto) 8.0 H, Absolute Lymphs (auto) 0.92, Total Counted Not Reportable 08/03/18 15:00: Sodium 143, Potassium 3.5, Chloride 99, Carbon Dioxide 39.0 H, Anion Gap 5, BUN 18, Creatinine 0.84, Estim Creat Clear Calc 74.83, Est GFR (MDRD) Af Amer 114, Est GFR (MDRD) Non-Af 94, BUN/Creatinine Ratio 21.5 H, Glucose 164 H, Calcium 7.7 L 08/03/18 15:00: Iron 30 L, TIBC 245 L, Iron Saturation 12.2 L, Total Bilirubin 0.70, Direct Bilirubin 0.18, AST 17, ALT 20, Alkaline Phosphatase 112, Total Protein 5.6 L, Albumin 2.8 L, Globulin 2.8 08/03/18 16:30: POC Glucose 159 H 08/03/18 17:25: S.aureus Protein A PCR NEGATIVE, MRSA (PCR) Negative 08/03/18 22:59: POC Glucose 231 H 08/04/18 05:16: WBC 9.1, RBC 3.25 L, Hgb 9.6 L, Hct 32.3 L, MCV 99.4 H, MCH 29.5, MCHC 29.7 L, RDW 14.8 H, RDW Differential 51.2 H, Plt Count 183, MPV 10.1, Immature Gran % (Auto) 1.000 H, Neut % (Auto) 73.8 H, Lymph % (Auto) 10.4 L, Person % (Auto) 13.1 H, Eos % (Auto) 1.4, Baso % (Auto) 0.3, Absolute Neuts (auto) 6.7, Absolute Lymphs (auto) 0.95, Total Counted Not Reportable 08/04/18 05:16: Sodium 141, Potassium 3.6, Chloride 100, Carbon Dioxide 35.0 H, Anion Gap 6, BUN 16, Creatinine 0.82, Estim Creat Clear Calc 79.08, Est GFR (MDRD) Af Amer 117, Est GFR (MDRD) Non-Af 96, BUN/Creatinine Ratio 19.5, Glucose 153 H, Calcium 7.6 L 08/04/18 06:32: POC Glucose 155 H Current Medications Acetaminophen (Tylenol) 1,000 mg PO Q8 MELISSA Last Admin: 08/04/18 06:58 Dose: 1,000 mg Albuterol Sulfate (Ventolin Aerosols) 2.5 mg INHALATION Q6HWA.RT [facility] Last Admin: 08/04/18 07:08 Dose: 2.5 mg Albuterol/Ipratropium (Duoneb) 3 ml INHALATION Q4H PRN PRN PRN Reason: Asthma Alendronate Sodium (Fosamax) 70 mg PO Q7D@0700 MELISSA Apixaban (Eliquis) 5 mg PO BID [facility] Last Admin: 08/04/18 10:14 Dose: 5 mg Atorvastatin Calcium (Lipitor) 40 mg PO QHS [facility] Last Admin: 08/03/18 20:40 Dose: 40 mg Budesonide (Pulmicort Aerosol) 0.5 mg INHALATION Q12H.RT [facility] Last Admin: 08/04/18 07:08 Dose: 0.5 mg Dextrose (D50w Syringe) 0 gm IV X1 PRN; Protocol PRN Reason: Hypoglycemia Duloxetine HCl (Cymbalta) 30 mg PO BID [facility] Last Admin: 08/04/18 10:15 Dose: 30 mg Ferrous Sulfate (Ferrous Sulfate) 325 mg PO DAILYCM [facility] Last Admin: 08/04/18 10:15 Dose: 325 mg Finasteride (Proscar) 5 mg PO DAILY [facility] Last Admin: 08/04/18 10:15 Dose: 5 mg Furosemide (Lasix) 40 mg IV BID@1000,1800 [facility] Last Admin: 08/04/18 10:15 Dose: 40 mg Glucagon () 1 mg IM .X1 PRN PRN Reason: Hypoglycemia Cefazolin Sodium () 1 gm in 50 mls @ 100 mls/hr IV Q8 [facility] Last Admin: 08/04/18 06:34 Dose: 100 mls/hr Insulin Glargine (Lantus (Bkc)) 38 units SC QHS [facility] Last Admin: 08/03/18 23:12 Dose: 38 units Insulin Human Lispro (Humalog Kwikpen (Bkc)) 0 unit SQ ACHS [facility]; Protocol Last Admin: 08/04/18 06:37 Dose: 1 unit Linagliptin (Tradjenta) 5 mg PO DAILY [facility] Last Admin: 08/04/18 10:14 Dose: 5 mg Magnesium Hydroxide (Milk Of Magnesia) 30 ml PO DAILY PRN PRN PRN Reason: Constipation Melatonin (Melatonin) 6 mg PO QHS [facility] Last Admin: 08/03/18 23:58 Dose: 6 mg Metoprolol Succinate (Toprol Xl (Beta Gamal)) 50 mg PO DAILY [facility] Last Admin: 08/04/18 10:14 Dose: 50 mg Montelukast Sodium (Singulair) 10 mg PO QHS [facility] Oxybutynin Chloride (Ditropan) 5 mg PO DAILY [facility] Last Admin: 08/04/18 10:14 Dose: 5 mg Pantoprazole Sodium (Protonix) 20 mg PO DAILY [facility] Last Admin: 08/04/18 10:14 Dose: 20 mg [facility]assium [facility] ([facility] Admin: 08/04/18 10:14 Dose: 10 meq [facility] () [facility] Last Admin: 08/04/18 10:15 Dose: 20 mg Pregabalin (Lyrica) 200 mg PO BID [facility] Last Admin: 08/04/18 10:15 Dose: 200 mg Psyllium Hydrophilic Mucilloid (Metamucil) 1 packet PO DAILY PRN PRN PRN Reason: CONSTIPATION Tamsulosin HCl (Flomax) 0.4 mg PO DAILY@1730 [facility] Last Admin: 08/03/18 18:05 Dose: 0.4 mg Tramadol HCl (Ultram) 100 mg PO TID [facility] Last Admin: 08/04/18 06:35 Dose: 100 mg Trazodone HCl (Desyrel) 100 mg PO QHS [facility] Last Admin: 08/03/18 23:10 Dose: 100 mg Medical Necessity - Tobacco Use Smoking Status: Former smoker Tobacco Use: Non-smoker Assessment/Plan All Active Problems Cellulitis of right lower extremity (Acute) 1. Right lower extremity cellulitis Secondary to open wound on hutchinson but may also be related with abrasion on the knee seen by infectious disease and will Continue with cefazolin Gram stain from wound culture rare gram positive cocci and gram negative rods Await final culture and adjust antibiotics accordingly. 2. Right lower extremity wound Status post fall with his walker. Continue with wound care Patient on prednisone currently, unclear if acute or chronic but certainly impeding healing. Duplex negative for DVT 3. Diabetes mellitus type 2 Fair control at this time Continue with sliding scale, Tradjenta, Lantus Check an A1c 4. COPD Stable Continue with aerosols 5. CHF Unknown type Echocardiogram ordered On IV Lasix, will change back to oral Lasix Continue with Toprol-XL 6. DVT prophylaxis: Patient is anticoagulated on Eliquis. Code Visit Inpatient E&M: 35690 Subs Hosp L2
--- NOTE | 2018-08-04 10:45 | PN_ITS ---
Patient Problems: Active and Suspected Problems Cellulitis of right lower extremity (Acute) Subjective: Patient stated that his leg wound occurred after a fall with his walker back in April. Vitals/I&O's: Vital Signs Temp Pulse Resp BP Pulse Ox 37.4 C H 96 18 154/85 H 96 08/04/18 10:12 08/04/18 10:14 08/04/18 10:12 08/04/18 10:12 08/04/18 10:12 Oxygen Flow Rate (L/min) 2 Oxygen Delivery Method Nasal Cannula Weight: 139.4 kg Body Mass Index (BMI) 47.0 Intake and Output for Last 24 Hours 08/02/18 08/03/18 08/04/18 23:59 23:59 23:59 Intake Total 533 / 533 Output Total 800 / 800 Balance -267 / -267 General: Alert, Cooperative, No apparent distress HEENT: Atraumatic, Normocephalic Oral: Moist Mucosa, No Gingival or Mucosal Lesions/ Ulcerations Neck: No Nodes, Thyroid Normal Size and Texture Lungs: Clear to auscultation, Normal air movement, No rhonchi, No wheeze Cardiovascular: Regular rate, Regular Rhythm, Normal S1, Normal S2 Abdomen: Bowel Sounds Present, Soft, Non Tender, Non-Distended, Obese Extremities: No Calf Tenderness, Edema - Right lower extremity Skin: - - Wedge shaped wound anterior right hutchinson. Is a defect in there. No purulence was expressed, no foul odor. Market erythema of the distal lower extremity around the knee to the ankle. Does have a superficial his right knee. Psych/Mental Status: Normal Affect, Appropriate Microbiology Past 72 Hours 08/03/18 17:25 Wound - Leg, Right Gram Stain - Final Laboratory Results 08/03/18 15:00: WBC 10.6, RBC 2.95 L, Hgb 8.7 L, Hct 28.6 L, MCV 96.9 H, MCH 29.5, MCHC 30.4 L, RDW 15.1 H, RDW Differential 53.1 H, Plt Count 165, MPV 9.7, Immature Gran % (Auto) 0.900, Neut % (Auto) 75.4 H, Lymph % (Auto) 8.7 L, Woods % (Auto) 13.9 H, Eos % (Auto) 0.9, Baso % (Auto) 0.2, Absolute Neuts (auto) 8.0 H, Absolute Lymphs (auto) 0.92, Total Counted Not Reportable 08/03/18 15:00: Sodium 143, Potassium 3.5, Chloride 99, Carbon Dioxide 39.0 H, Anion Gap 5, BUN 18, Creatinine 0.84, Estim Creat Clear Calc 74.83, Est GFR (MDRD) Af Amer 114, Est GFR (MDRD) Non-Af 94, BUN/Creatinine Ratio 21.5 H, Glucose 164 H, Calcium 7.7 L 08/03/18 15:00: Iron 30 L, TIBC 245 L, Iron Saturation 12.2 L, Total Bilirubin 0.70, Direct Bilirubin 0.18, AST 17, ALT 20, Alkaline Phosphatase 112, Total Protein 5.6 L, Albumin 2.8 L, Globulin 2.8 08/03/18 16:30: POC Glucose 159 H 08/03/18 17:25: S.aureus Protein A PCR NEGATIVE, MRSA (PCR) Negative 08/03/18 22:59: POC Glucose 231 H 08/04/18 05:16: WBC 9.1, RBC 3.25 L, Hgb 9.6 L, Hct 32.3 L, MCV 99.4 H, MCH 29.5, MCHC 29.7 L, RDW 14.8 H, RDW Differential 51.2 H, Plt Count 183, MPV 10.1, Immature Gran % (Auto) 1.000 H, Neut % (Auto) 73.8 H, Lymph % (Auto) 10.4 L, Woods % (Auto) 13.1 H, Eos % (Auto) 1.4, Baso % (Auto) 0.3, Absolute Neuts (auto) 6.7, Absolute Lymphs (auto) 0.95, Total Counted Not Reportable 08/04/18 05:16: Sodium 141, Potassium 3.6, Chloride 100, Carbon Dioxide 35.0 H, Anion Gap 6, BUN 16, Creatinine 0.82, Estim Creat Clear Calc 79.08, Est GFR (MDRD) Af Amer 117, Est GFR (MDRD) Non-Af 96, BUN/Creatinine Ratio 19.5, Glucose 153 H, Calcium 7.6 L 08/04/18 06:32: POC Glucose 155 H Current Medications Acetaminophen (Tylenol) 1,000 mg PO Q8 [facility]ELISSA Last Admin: 08/04/18 06:58 Dose: 1,000 mg Albuterol Sulfate (Ventolin Aerosols) 2.5 mg INHALATION Q6HWA.RT [facility] Last Admin: 08/04/18 07:08 Dose: 2.5 mg Albuterol/Ipratropium (Duoneb) 3 ml INHALATION Q4H PRN PRN PRN Reason: Asthma Alendronate Sodium (Fosamax) 70 mg PO Q7D@0700 MELISSA Apixaban (Eliquis) 5 mg PO BID [facility] Last Admin: 08/04/18 10:14 Dose: 5 mg Atorvastatin Calcium (Lipitor) 40 mg PO QHS [facility] Last Admin: 08/03/18 20:40 Dose: 40 mg Budesonide (Pulmicort Aerosol) 0.5 mg INHALATION Q12H.RT [facility] Last Admin: 08/04/18 07:08 Dose: 0.5 mg Dextrose (D50w Syringe) 0 gm IV X1 PRN; Protocol PRN Reason: Hypoglycemia Duloxetine HCl (Cymbalta) 30 mg PO BID [facility] Last Admin: 08/04/18 10:15 Dose: 30 mg Ferrous Sulfate (Ferrous Sulfate) 325 mg PO DAILYCM [facility] Last Admin: 08/04/18 10:15 Dose: 325 mg Finasteride (Proscar) 5 mg PO DAILY [facility] Last Admin: 08/04/18 10:15 Dose: 5 mg Furosemide (Lasix) 40 mg IV BID@1000,1800 [facility] Last Admin: 08/04/18 10:15 Dose: 40 mg Glucagon () 1 mg IM .X1 PRN PRN Reason: Hypoglycemia Cefazolin Sodium () 1 gm in 50 mls @ 100 mls/hr IV Q8 [facility] Last Admin: 08/04/18 06:34 Dose: 100 mls/hr Insulin Glargine (Lantus (Bkc)) 38 units SC QHS [facility] Last Admin: 08/03/18 23:12 Dose: 38 units Insulin Human Lispro (Humalog Kwikpen (Bkc)) 0 unit SQ ACHS [facility]; Protocol Last Admin: 08/04/18 06:37 Dose: 1 unit Linagliptin (Tradjenta) 5 mg PO DAILY [facility] Last Admin: 08/04/18 10:14 Dose: 5 mg Magnesium Hydroxide (Milk Of Magnesia) 30 ml PO DAILY PRN PRN PRN Reason: Constipation Melatonin (Melatonin) 6 mg PO QHS [facility] Last Admin: 08/03/18 23:58 Dose: 6 mg Metoprolol Succinate (Toprol Xl (Beta Gamal)) 50 mg PO DAILY [facility] Last Admin: 08/04/18 10:14 Dose: 50 mg Montelukast Sodium (Singulair) 10 mg PO QHS [facility] Oxybutynin Chloride (Ditropan) 5 mg PO DAILY [facility] Last Admin: 08/04/18 10:14 Dose: 5 mg Pantoprazole Sodium (Protonix) 20 mg PO DAILY [facility] Last Admin: 08/04/18 10:14 Dose: 20 mg Potassium [facility] ([facility]) [facility] Last Admin: 08/04/18 10:14 Dose: 10 meq Prednisone () [facility] Last Admin: 08/04/18 10:15 Dose: 20 mg Pregabalin (Lyrica) 200 mg PO BID [facility] Last Admin: 08/04/18 10:15 Dose: 200 mg Psyllium Hydrophilic Mucilloid (Metamucil) 1 packet PO DAILY PRN PRN PRN Reason: CONSTIPATION Tamsulosin HCl (Flomax) 0.4 mg PO DAILY@1730 [facility] Last Admin: 08/03/18 18:05 Dose: 0.4 mg Tramadol HCl (Ultram) 100 mg PO TID [facility] Last Admin: 08/04/18 06:35 Dose: 100 mg Trazodone HCl (Desyrel) 100 mg PO QHS [facility] Last Admin: 08/03/18 23:10 Dose: 100 mg Medical Necessity - Tobacco Use Smoking Status: Former smoker Tobacco Use: Non-smoker Assessment/Plan All Active Problems Cellulitis of right lower extremity (Acute) 1. Right lower extremity cellulitis Secondary to open wound on hutchinson but may also be related with abrasion on the knee seen by infectious disease and will Continue with cefazolin Gram stain from wound culture rare gram positive cocci and gram negative rods Await final culture and adjust antibiotics accordingly. 2. Right lower extremity wound Status post fall with his walker. Continue with wound care Patient on prednisone currently, unclear if acute or chronic but certainly impeding healing. Duplex negative for DVT 3. Diabetes mellitus type 2 Fair control at this time Continue with sliding scale, Tradjenta, Lantus Check an A1c 4. COPD Stable Continue with aerosols 5. CHF Unknown type Echocardiogram ordered On IV Lasix, will change back to oral Lasix Continue with Toprol-XL 6. DVT prophylaxis: Patient is anticoagulated on Eliquis. Code Visit Inpatient E&M: 22111 Subs Hosp L2
--- NOTE | 2018-08-04 11:00 | CASEMGMT ---
Social Work Note Pt is listed as being from [facility]. SW met with pt to confirm discharge plans. SW introduced self and role at [facility]. Pt is alert and orientated x4. Pt confirms that he is a alf resident at [facility] and his plan is to return there at discharge. Pt states that he is doing fine but states that he always thought he was going to go first. SW asked what pt meant by this. Pt states that his two years ago and stated that he always thought he would go first and not her. SW offered support to pt. Pt states that his son Sacha had a hard time dealing with his mom's . Pt states that Sacha is doing better now though and that he is good support for pt. SW again offered support to pt. THEE placed a call to [facility] and spoke with Cathi. Cathi confirms that pt is alf resident at [facility]. Cathi asked if pt would require to come back skilled. THEE informed Cathi that pt would need three midnight stay under Medicare and this worker is unsure if physician will be keeping pt for three midnights. Cathi states to call [facility] and ask to speak with Karlee Chi as she is in charge of Assisted Living side at [facility] if additional information is needed. THEE faxed updated clinicals to [facility]. Plan: Pt to return to [facility] or if pt is able to get three midnights then pt is able to return skilled Rhonda Taylor LADLE MECHANIC, ASSISTANT COMMUNITY MANAGER
[2018-08-04 14:32] LABS: Bedside Glucose 300 mg/dL (70-110)
--- NOTE | 2018-08-04 16:13 | CHAPLAIN ---
Type of Pastoral Visit _x__ Initial Visit ___ Follow-up Visit ___ On-call Visit ___ General Patient Visit ___ Spiritual Assessment ___ Family Conference ___ Bereavement ___ Rapid Response ___ Code Blue ___ Other (describe below) Pastoral Care Referral From _x__ Patient ___ Family ___ Nurse ___ Physician ___ Skip Pit Worker ___ Home Energy Rater ___ Other (describe below) Sacrament/Intervention _x__ Active listening ___ Anointing ___ Sabianism _x__ Bereavement ___ Communion ___ Casie exploration ___ _x__ Life review _x__ Prayer ___ Reconciliation ___ Sacrament of Sick _x__ Supportive presence ___ Wedding ___ Other (describe below) Pastoral Comments patient talks of many changes in his life - of spouse, move from home of nearly 60 years to a alf apartment, health changes; pt has a adventism connection;
[2018-08-04] MEDS: Tamsulosin HCl 0.4 MG Capsule PO (18:13)
[2018-08-04] MEDS: Furosemide 40 MG Tablet PO (18:13)
[2018-08-04 18:27] LABS: Bedside Glucose 333 mg/dL (70-110)
[2018-08-04] MEDS: traZODone 100 MG Tablet PO (22:08)
[2018-08-04] MEDS: MELATONIN 3 MG TABLET 6 MG PO (22:09)
[2018-08-04] MEDS: Montelukast 10 MG Tablet PO (22:10)
[2018-08-04] MEDS: Atorvastatin Calcium 40 MG Tablet PO (22:10)
[2018-08-04 22:32] LABS: Bedside Glucose 265 mg/dL (70-110)
[2018-08-05] MEDS: Cefazolin 1 GM/50 ML BAG IV ×2 (05:16→14:25)
[2018-08-05] MEDS: Acetaminophen 500 MG Tablet 1000 MG PO ×3 (05:30→22:54)
[2018-08-05] MEDS: traMADol 50 MG Tablet 100 MG PO ×3 (05:31→22:52)
[2018-08-05 05:43] LABS: Absolute Lymphocyte Count 0.92 X10^3/ul (0.83-4.51); Absolute Neutrophil Count 9.2 X10^3/uL (2.0-7.7); Basophil# 0.01 X10^3/uL; Basophil% 0.1 % (0-1); Eosinophil# 0.08 X10^3/uL; Eosinophils% 0.7 % (0-5); Hematocrit 29.8 % (40-54); Hemoglobin 9.5 g/dl (13.0-16.5); Lymphocyte # 0.92 X10^3/ul (4.0); Lymphocyte % 7.8 % (19-41); Mean Corp Hgb Conc 31.9 g/gl (32-36); Mean Corpuscular Hgb 30.3 pg (27.0-32.0); Mean Corpuscular Volume 94.9 fL (80-94); Mean Platelet Vol. 10.5 fl (6.2-12.0); Monocyte% 12.8 % (0-10); Neutrophil # 9.15 X10^3/uL (2.7-7.7); Neutrophil % 77.8 % (47-70); Platelet Count 152 K/mm3 (150-450); RBC Distribution Width CV 15.2 % (11.6-14.6); RBC Distribution Width SD 51.8 fl (35.1-43.9); Red Blood Count 3.14 M/mm3 (4.6-6.2); White Blood Count 11.8 K/mm3 (4.4-11.0)
[2018-08-05 05:44] LABS: POSITIVE COUNT NO; POSITIVE DIFFERENTIAL NO; POSITIVE MORPHOLOGY NO
[2018-08-05 06:15] LABS: Anion Gap 11 (5-15); BUN 18 mg/dL (7-18); BUN/Creat Ratio 23.2 RATIO (10-20); Calcium,Total 7.7 mg/dL (8.5-10.1); Chloride 104 mmol/L (98-107); Creatinine, Serum 0.78 mg/dL (0.70-1.30); EST Glomerular Filtration Rate 103 mL/min (>60); Est Glom Filt Rate - Afr Amer 124 mL/min (>60); Estimated Creatinine Clearance 64.84 ml/min; Glucose 113 mg/dL (74-106); Potassium 3.9 mmol/L (3.5-5.1); Sodium Level 138 mmol/L (136-145)
[2018-08-05 06:51] LABS: Bedside Glucose 147 mg/dL (70-110)
[2018-08-05 07:18] VITALS: PULSE 80; RESP 16; O2SAT 97
[2018-08-05] MEDS: Albuterol 2.5 MG/3 ML VIAL.NEB. INHALATION ×3 (07:18→19:13)
[2018-08-05] MEDS: Budesonide Respules 0.5 MG/2 ML AMPUL.NEB. INHALATION ×2 (07:18→19:13)
[2018-08-05 08:00] VITALS: BP 138/68; PULSE 80; RESP 18; TEMP 36.7; O2SAT 98
[2018-08-05] MEDS: Ferrous Sulfate 325 MG Tablet PO (08:25)
[2018-08-05] MEDS: predniSONE 20 MG Tablet PO (08:25)
--- NOTE | 2018-08-05 09:26 | PCM.PN.HOSP ---
Patient Problems: Active and Suspected Problems Cellulitis of right lower extremity (Acute) Subjective: No new complaints. Vitals/I&O's: Vital Signs Temp Pulse Resp BP Pulse Ox 36.9 C 84 18 134/84 H 100 08/04/18 22:00 08/04/18 23:00 08/04/18 22:00 08/04/18 22:00 08/04/18 22:00 Oxygen Flow Rate (L/min) 2 Oxygen Delivery Method Nasal Cannula Weight: 139 kg Body Mass Index (BMI) 47.0 Intake and Output for Last 24 Hours 08/03/18 08/04/18 08/05/18 23:59 23:59 23:59 Intake Total 690 / 690 935 / 935 Output Total 1200 / 1200 600 / 600 Balance -510 / -510 335 / 335 General: Alert, No apparent distress HEENT: Atraumatic, Normocephalic Oral: Moist Mucosa, No Gingival or Mucosal Lesions/ Ulcerations Neck: No Nodes, Thyroid Normal Size and Texture Lungs: Clear to auscultation, Normal air movement, No rhonchi, No wheeze Cardiovascular: Regular rate, Regular Rhythm, Normal S1, Normal S2, No murmurs Abdomen: Bowel Sounds Present, Soft, Non Tender, Non-Distended, No Hepato-splenomegaly, Obese Extremities: No Calf Tenderness, Edema Skin: - - Defect in the right anterior hutchinson with no purulence no foul odor. Venous stasis dermatitis bilateral lower extremities but erythema and warmth of the right lower extremity. Does have a superficial abrasion over his right knee. Psych/Mental Status: Normal Affect, Appropriate Microbiology Past 72 Hours 08/03/18 17:25 Wound - Leg, Right Gram Stain - Final 08/03/18 17:25 Wound - Leg, Right Wound Culture - Preliminary Pseudomonas aeroginosa Laboratory Results 08/04/18 13:51: POC Glucose 300 H 08/04/18 18:12: POC Glucose 333 H 08/04/18 22:24: POC Glucose 265 H 08/05/18 05:08: WBC 11.8 H, RBC 3.14 L, Hgb 9.5 L, Hct 29.8 L, MCV 94.9 H, MCH 30.3, MCHC 31.9 L, RDW 15.2 H, RDW Differential 51.8 H, Plt Count 152, MPV 10.5, Immature Gran % (Auto) 0.800, Neut % (Auto) 77.8 H, Lymph % (Auto) 7.8 L, [place] % (Auto) 12.8 H, Eos % (Auto) 0.7, Baso % (Auto) 0.1, Absolute Neuts (auto) 9.2 H, Absolute Lymphs (auto) 0.92, Total Counted Not Reportable 08/05/18 05:08: Sodium 138, Potassium 3.9, Chloride 104, Carbon Dioxide 23.0, Anion Gap 11, BUN 18, Creatinine 0.78, Estim Creat Clear Calc 64.84, Est GFR (MDRD) Af Amer 124, Est GFR (MDRD) Non-Af 103, BUN/Creatinine Ratio 23.2 H, Glucose 113 H, Calcium 7.7 L 08/05/18 06:45: POC Glucose 147 H Current Medications Acetaminophen (Tylenol) 1,000 mg PO Q8 [facility] Last Admin: 08/05/18 05:30 Dose: 1,000 mg Albuterol Sulfate (Ventolin Aerosols) 2.5 mg INHALATION Q6HWA.RT [facility] Last Admin: 08/05/18 07:18 Dose: 2.5 mg Albuterol/Ipratropium (Duoneb) 3 ml INHALATION Q4H PRN PRN PRN Reason: Asthma Alendronate Sodium (Fosamax) 70 mg PO Q7D@0700 MELISSA Apixaban (Eliquis) 5 mg PO BID [facility] Last Admin: 08/04/18 22:10 Dose: 5 mg Atorvastatin Calcium (Lipitor) 40 mg PO QHS [facility] Last Admin: 08/04/18 22:10 Dose: 40 mg Budesonide (Pulmicort Aerosol) 0.5 mg INHALATION Q12H.RT [facility] Last Admin: 08/05/18 07:18 Dose: 0.5 mg Dextrose (D50w Syringe) 0 gm IV X1 PRN; Protocol PRN Reason: Hypoglycemia Duloxetine HCl (Cymbalta) 30 mg PO BID [facility] Last Admin: 08/04/18 22:09 Dose: 30 mg Ferrous Sulfate (Ferrous Sulfate) 325 mg PO DAILYCM [facility] Last Admin: 08/05/18 08:25 Dose: 325 mg Finasteride (Proscar) 5 mg PO DAILY [facility] Last Admin: 08/04/18 10:15 Dose: 5 mg Furosemide (Lasix) 40 mg PO BID@1000,1800 [facility] Last Admin: 08/04/18 18:13 Dose: 40 mg Glucagon () 1 mg IM .X1 PRN PRN Reason: Hypoglycemia Cefazolin Sodium () 1 gm in 50 mls @ 100 mls/hr IV Q8 [facility] Last Admin: 08/05/18 05:16 Dose: 100 mls/hr Insulin Glargine (Lantus (Bk)) 38 units SC QHS [facility] Last Admin: 08/04/18 22:27 Dose: 38 units Insulin Human Lispro (Humalog Kwikpen ([facility])) 0 unit SQ ACHS [facility]; Protocol Last Admin: 08/05/18 06:47 Dose: Not Given Linagliptin (Tradjenta) 5 mg PO DAILY [facility] Last Admin: 08/04/18 10:14 Dose: 5 mg Magnesium Hydroxide (Milk Of Magnesia) 30 ml PO DAILY PRN PRN PRN Reason: Constipation Melatonin (Melatonin) 6 mg PO QHS [facility] Last Admin: 08/04/18 22:09 Dose: 6 mg Metoprolol Succinate (Toprol Xl (Beta Gamal)) 50 mg PO DAILY [facility] Last Admin: 08/04/18 10:14 Dose: 50 mg Montelukast Sodium (Singulair) 10 mg PO QHS [facility] Last Admin: 08/04/18 22:10 Dose: 10 mg Nystatin (Mycostatin Powder) 1 applic TOPICAL BID [facility]; Protocol Oxybutynin Chloride (Ditropan) 5 mg PO DAILY [facility] Last Admin: 08/04/18 10:14 Dose: 5 mg Pantoprazole Sodium (Protonix) 20 mg PO DAILY [facility] Last Admin: 08/04/18 10:14 Dose: 20 mg Potassium [facility]) [facility] Admin: 08/05/18 08:25 Dose: 10 meq Prednisone () 20 mg PO DAILYCM [facility] Last Admin: 08/05/18 08:25 Dose: 20 mg Pregabalin (Lyrica) 200 mg PO BID [facility] Last Admin: 08/04/18 22:09 Dose: 200 mg Psyllium Hydrophilic Mucilloid (Metamucil) 1 packet PO DAILY PRN PRN PRN Reason: CONSTIPATION Tamsulosin HCl (Flomax) 0.4 mg PO DAILY@1730 [facility] Last Admin: 08/04/18 18:13 Dose: 0.4 mg Throat Lozenges (Cepacol Sore Throat Lozenge) 1 lozenge MUCOUS MEM Q2H PRN PRN PRN Reason: DRY MOUTH Tramadol HCl (Ultram) 100 mg PO TID [facility] Last Admin: 08/05/18 05:31 Dose: 100 mg Trazodone HCl (Desyrel) 100 mg PO QHS [facility] Last Admin: 08/04/18 22:08 Dose: 100 mg Medical Necessity - Tobacco Use Smoking Status: Former smoker Tobacco Use: Non-smoker Assessment/Plan All Active Problems Cellulitis of right lower extremity (Acute) 1. Right lower extremity cellulitis Secondary to open wound on hutchinson but may also be related with abrasion on the knee seen by infectious disease and will + Pseudomonas, ramirez-sensitive ID following. 2. Right lower extremity wound Status post fall with his walker. Continue with wound care Patient on prednisone currently, unclear if acute or chronic but certainly impeding healing. Duplex negative for DVT 3. Diabetes mellitus type 2 Fair control at this time Continue with sliding scale, Tradjenta, Lantus Check an A1c 4. COPD Stable Continue with aerosols 5. HFpEF EF 65% Continue with Toprol-XL Will switch back to IV lasix for another 24h to further diurese as he is still volume overloaded Fluid restrict 1500cc/day. Lymphedema wraps. 6. DVT prophylaxis: Patient is anticoagulated on Eliquis. 7. Disposition: Pending further ID recs and volume improvement, but anticipate DC in next 24-48h to SNF. Code Visit Inpatient E&M: 37629 Subs Hosp L2
--- NOTE | 2018-08-05 09:33 | PN_ITS ---
Patient Problems: Active and Suspected Problems Cellulitis of right lower extremity (Acute) Subjective: No new complaints. Vitals/I&O's: Vital Signs Temp Pulse Resp BP Pulse Ox 36.9 C 84 18 134/84 H 100 08/04/18 22:00 08/04/18 23:00 08/04/18 22:00 08/04/18 22:00 08/04/18 22:00 Oxygen Flow Rate (L/min) 2 Oxygen Delivery Method Nasal Cannula Weight: 139 kg Body Mass Index (BMI) 47.0 Intake and Output for Last 24 Hours 08/03/18 08/04/18 08/05/18 23:59 23:59 23:59 Intake Total 690 / 690 935 / 935 Output Total 1200 / 1200 600 / 600 Balance -510 / -510 335 / 335 General: Alert, No apparent distress HEENT: Atraumatic, Normocephalic Oral: Moist Mucosa, No Gingival or Mucosal Lesions/ Ulcerations Neck: No Nodes, Thyroid Normal Size and Texture Lungs: Clear to auscultation, Normal air movement, No rhonchi, No wheeze Cardiovascular: Regular rate, Regular Rhythm, Normal S1, Normal S2, No murmurs Abdomen: Bowel Sounds Present, Soft, Non Tender, Non-Distended, No Hepato- splenomegaly, Obese Extremities: No Calf Tenderness, Edema Skin: - - Defect in the right anterior hutchinson with no purulence no foul odor. Venous stasis dermatitis bilateral lower extremities but erythema and warmth of the right lower extremity. Does have a superficial abrasion over his right knee. Psych/Mental Status: Normal Affect, Appropriate Microbiology Past 72 Hours 08/03/18 17:25 Wound - Leg, Right Gram Stain - Final 08/03/18 17:25 Wound - Leg, Right Wound Culture - Preliminary Pseudomonas aeroginosa Laboratory Results 08/04/18 13:51: POC Glucose 300 H 08/04/18 18:12: POC Glucose 333 H 08/04/18 22:24: POC Glucose 265 H 08/05/18 05:08: WBC 11.8 H, RBC 3.14 L, Hgb 9.5 L, Hct 29.8 L, MCV 94.9 H, MCH 30.3, MCHC 31.9 L, RDW 15.2 H, RDW Differential 51.8 H, Plt Count 152, MPV 10.5, Immature Gran % (Auto) 0.800, Neut % (Auto) 77.8 H, Lymph % (Auto) 7.8 L, [place] % (Auto) 12.8 H, Eos % (Auto) 0.7, Baso % (Auto) 0.1, Absolute Neuts (auto) 9.2 H, Absolute Lymphs (auto) 0.92, Total Counted Not Reportable 08/05/18 05:08: Sodium 138, Potassium 3.9, Chloride 104, Carbon Dioxide 23.0, Anion Gap 11, BUN 18, Creatinine 0.78, Estim Creat Clear Calc 64.84, Est GFR (MDRD) Af Amer 124, Est GFR (MDRD) Non-Af 103, BUN/Creatinine Ratio 23.2 H, Glucose 113 H, Calcium 7.7 L 08/05/18 06:45: POC Glucose 147 H Current Medications Acetaminophen (Tylenol) 1,000 mg PO Q8 [facility] Last Admin: 08/05/18 05:30 Dose: 1,000 mg Albuterol Sulfate (Ventolin Aerosols) 2.5 mg INHALATION Q6HWA.RT [facility] Last Admin: 08/05/18 07:18 Dose: 2.5 mg Albuterol/Ipratropium (Duoneb) 3 ml INHALATION Q4H PRN PRN PRN Reason: Asthma Alendronate Sodium (Fosamax) 70 mg PO Q7D@0700 MELISSA Apixaban (Eliquis) 5 mg PO BID [facility] Last Admin: 08/04/18 22:10 Dose: 5 mg Atorvastatin Calcium (Lipitor) 40 mg PO QHS [facility] Last Admin: 08/04/18 22:10 Dose: 40 mg Budesonide (Pulmicort Aerosol) 0.5 mg INHALATION Q12H.RT [facility] Last Admin: 08/05/18 07:18 Dose: 0.5 mg Dextrose (D50w Syringe) 0 gm IV X1 PRN; Protocol PRN Reason: Hypoglycemia Duloxetine HCl (Cymbalta) 30 mg PO BID [facility] Last Admin: 08/04/18 22:09 Dose: 30 mg Ferrous Sulfate (Ferrous Sulfate) 325 mg PO DAILYCM [facility] Last Admin: 08/05/18 08:25 Dose: 325 mg Finasteride (Proscar) 5 mg PO DAILY [facility] Last Admin: 08/04/18 10:15 Dose: 5 mg Furosemide (Lasix) 40 mg PO BID@1000,1800 [facility] Last Admin: 08/04/18 18:13 Dose: 40 mg Glucagon () 1 mg IM .X1 PRN PRN Reason: Hypoglycemia Cefazolin Sodium () 1 gm in 50 mls @ 100 mls/hr IV Q8 [facility] Last Admin: 08/05/18 05:16 Dose: 100 mls/hr Insulin Glargine (Lantus (Bk)) 38 units SC QHS [facility] Last Admin: 08/04/18 22:27 Dose: 38 units Insulin Human Lispro (Humalog Kwikpen ([facility])) 0 unit SQ ACHS [facility]; Protocol Last Admin: 08/05/18 06:47 Dose: Not Given Linagliptin (Tradjenta) 5 mg PO DAILY [facility] Last Admin: 08/04/18 10:14 Dose: 5 mg Magnesium Hydroxide (Milk Of Magnesia) 30 ml PO DAILY PRN PRN PRN Reason: Constipation Melatonin (Melatonin) 6 mg PO QHS [facility] Last Admin: 08/04/18 22:09 Dose: 6 mg Metoprolol Succinate (Toprol Xl (Beta Gamal)) 50 mg PO DAILY [facility] Last Admin: 08/04/18 10:14 Dose: 50 mg Montelukast Sodium (Singulair) 10 mg PO QHS [facility] Last Admin: 08/04/18 22:10 Dose: 10 mg Nystatin (Mycostatin Powder) 1 applic TOPICAL BID [facility]; Protocol Oxybutynin Chloride (Ditropan) 5 mg PO DAILY [facility] Last Admin: 08/04/18 10:14 Dose: 5 mg Pantoprazole Sodium (Protonix) 20 mg PO DAILY [facility] Last Admin: 08/04/18 10:14 Dose: 20 mg Potassium [facility] ([facility]Dur) [facility] Last Admin: 08/05/18 08:25 Dose: 10 meq Prednisone () 20 mg PO DAILYCM [facility] Last Admin: 08/05/18 08:25 Dose: 20 mg Pregabalin (Lyrica) 200 mg PO BID [facility] Last Admin: 08/04/18 22:09 Dose: 200 mg Psyllium Hydrophilic Mucilloid (Metamucil) 1 packet PO DAILY PRN PRN PRN Reason: CONSTIPATION Tamsulosin HCl (Flomax) 0.4 mg PO DAILY@1730 [facility] Last Admin: 08/04/18 18:13 Dose: 0.4 mg Throat Lozenges (Cepacol Sore Throat Lozenge) 1 lozenge MUCOUS MEM Q2H PRN PRN PRN Reason: DRY MOUTH Tramadol HCl (Ultram) 100 mg PO TID [facility] Last Admin: 08/05/18 05:31 Dose: 100 mg Trazodone HCl (Desyrel) 100 mg PO QHS [facility] Last Admin: 08/04/18 22:08 Dose: 100 mg Medical Necessity - Tobacco Use Smoking Status: Former smoker Tobacco Use: Non-smoker Assessment/Plan All Active Problems Cellulitis of right lower extremity (Acute) 1. Right lower extremity cellulitis Secondary to open wound on hutchinson but may also be related with abrasion on the knee seen by infectious disease and will + Pseudomonas, ramirez-sensitive ID following. 2. Right lower extremity wound Status post fall with his walker. Continue with wound care Patient on prednisone currently, unclear if acute or chronic but certainly impeding healing. Duplex negative for DVT 3. Diabetes mellitus type 2 Fair control at this time Continue with sliding scale, Tradjenta, Lantus Check an A1c 4. COPD Stable Continue with aerosols 5. HFpEF EF 65% Continue with Toprol-XL Will switch back to IV lasix for another 24h to further diurese as he is still volume overloaded Fluid restrict 1500cc/day. Lymphedema wraps. 6. DVT prophylaxis: Patient is anticoagulated on Eliquis. 7. Disposition: Pending further ID recs and volume improvement, but anticipate DC in next 24-48h to SNF. Code Visit Inpatient E&M: 62410 Subs Hosp L2
[2018-08-05 10:31] VITALS: PULSE 74
[2018-08-05] MEDS: Pregabalin 50 MG Capsule 200 MG PO ×2 (10:31→22:53)
[2018-08-05] MEDS: APIXABAN 5 MG TABLET PO ×2 (10:31→22:53)
[2018-08-05] MEDS: Pantoprazole Sodium 20 MG Tablet PO (10:31)
[2018-08-05] MEDS: Furosemide 40 MG/4 ML Vial IV ×2 (10:31→17:23)
[2018-08-05] MEDS: Metoprolol(XL)Succ 50 MG Tablet PO (10:31)
[2018-08-05] MEDS: Finasteride 5 MG Tablet PO (10:31)
[2018-08-05] MEDS: DULoxetine Hcl 30 MG Capsule PO ×2 (10:31→22:54)
[2018-08-05] MEDS: LINAGLIPTIN 5 MG TABLET PO (10:31)
[2018-08-05] MEDS: Oxybutynin 5 MG Tablet PO (10:31)
[2018-08-05] MEDS: Nystatin Powder 15gm Bottle 1 APPLIC TOPICAL ×2 (10:32→23:03)
[2018-08-05 11:13] LABS: Hemoglobin A1c 9.4 % (4.2-6.3)
--- NOTE | 2018-08-05 12:03 | CASEMGMT ---
Social Work Note Per physician note from today, pt is likely to discharge in next 24-48 hours. THEE placed a call to [facility] and left a message with Alicia Adame in Assisted Living. THEE informed Alicia that pt it likely to discharge in next 24-48 hours and informed her that that pt's first night was in observation and didn't count towards Medicare and that pt would need to be at [facility] until Wednesday for Medicare to cover pt going skilled at discharge. THEE faxed updated clinicals to Alicia at [facility]. Green sheet on chart stating pt is able to discharge to [facility] or [facility] pending when pt is discharged. Plan: Return to [facility] vs. [facility] Rhonda Taylor REWORK MACHINE OPERATOR, PRINTING PRESS MACHINIST
[2018-08-05] MEDS: Insulin Lispro 100 UNIT/ML INSULN.PEN SQ ×3 (12:33→23:02)
[2018-08-05 12:41] LABS: Bedside Glucose 301 mg/dL (70-110)
--- NOTE | 2018-08-05 14:37 | PCM.PN.ID ---
Patient Problems: Active and Suspected Problems Cellulitis of right lower extremity (Acute) Subjective: Feeling better, pain is improved. No fever. No n/v/d. Still having some serous drainage. - Physical Exam General: Alert, Cooperative, No apparent distress Lungs: Clear to auscultation, Normal air movement Cardiovascular: Regular rate, Regular Rhythm Abdomen: Soft, Non Tender, Non-Distended Extremities: Edema Skin: Ulcer/ Wound Vital Signs Temp Pulse Resp BP Pulse Ox 98.0 F 74 18 138/68 H 98 08/05/18 08:00 08/05/18 10:31 08/05/18 08:00 08/05/18 08:00 08/05/18 08:00 Oxygen Flow Rate (L/min) 2 Oxygen Delivery Method Nasal Cannula Weight: 153 kg Body Mass Index (BMI) 47.0 Intake and Output for Last 24 Hours 08/03/18 08/04/18 08/05/18 23:59 23:59 23:59 Intake Total 690 / 690 1135 / 1135 Output Total 1200 / 1200 600 / 600 Balance -510 / -510 535 / 535 Microbiology Past 72 Hours 08/03/18 15:00 Blood Culture - Preliminary Blood Culture (Wb) - Anticubital Right No growth in 48 hours. 08/03/18 15:00 Blood Culture - Preliminary Blood Culture (Wb) - Anticubital Left No growth in 48 hours. 08/03/18 17:25 Gram Stain - Final Wound - Leg, Right Wound Culture - Preliminary Pseudomonas aeroginosa Gram positive ely Laboratory Tests Past 24 Hrs 08/05/18 08/05/18 08/05/18 05:08 05:08 05:16 WBC 11.8 H RBC 3.14 L Hgb 9.5 L Hct 29.8 L MCV 94.9 H MCH 30.3 MCHC 31.9 L RDW 15.2 H RDW Differential 51.8 H Plt Count 152 MPV 10.5 Immature Gran % (Auto) 0.800 Neut % (Auto) 77.8 H Lymph % (Auto) 7.8 L [place] % (Auto) 12.8 H Eos % (Auto) 0.7 Baso % (Auto) 0.1 Absolute Neuts (auto) 9.2 H Absolute Lymphs (auto) 0.92 Total Counted Not Reportable Sodium 138 Potassium 3.9 Chloride 104 Carbon Dioxide 23.0 Anion Gap 11 BUN 18 Creatinine 0.78 Estim Creat Clear Calc 64.84 Est GFR (MDRD) Af Amer 124 Est GFR (MDRD) Non-Af 103 BUN/Creatinine Ratio 23.2 H Glucose 113 H Hemoglobin A1c 9.4 H Calcium 7.7 L POC Glucose 08/05/18 08/05/18 08/04/18 12:30 06:45 22:24 POC Glucose 301 H 147 H 265 H 08/04/18 18:12 POC Glucose 333 H Medical Necessity - Tobacco Use Smoking Status: Former smoker Tobacco Use: Non-smoker Route of nutrition/ use of supplements: [] Nutritional Intake: [] IV Site: [] Garcia Catheter: [] - Assessment/Plan Antibiotics: [] Assessment/Plan: [] Active and Suspected Problems Cellulitis of right lower extremity (Acute) Not clear if this is infected. Normal wbc, no fever, relatively stable symptoms since his fall. No purulence or necrosis on wounds, minimal tenderness. Wound gram stain with only rare GPC and GNR, and cx now with some Pseudomonas. Overall improving since admission without pseudomonal coverage. Discussed options with him; for now will change cefazolin to keflex and monitor. Plan on stop date 08/11/18. Will follow, d/w Dr. Villarreal and wound care.
[2018-08-05 14:45] VITALS: BP 144/86; PULSE 95; RESP 18; TEMP 36.8; O2SAT 98
[2018-08-05] MEDS: BENZOCAINE/MENTHOL 1 LOZENGE MUCOUS MEM (14:51)
[2018-08-05 16:17] LABS: Bedside Glucose 259 mg/dL (70-110)
[2018-08-05] MEDS: Tamsulosin HCl 0.4 MG Capsule PO (16:48)
[2018-08-05] MEDS: Cephalexin 500 MG Capsule PO (17:23)
[2018-08-05] MEDS: 0.9% NaCl Peripheral Flush Adult/Peds IV (17:24)
[2018-08-05 19:14] VITALS: PULSE 104; RESP 18
[2018-08-05 22:00] VITALS: BP 152/83; PULSE 86; RESP 18; TEMP 36.9; O2SAT 97
[2018-08-05] MEDS: traZODone 100 MG Tablet PO (22:53)
[2018-08-05] MEDS: Montelukast 10 MG Tablet PO (22:53)
[2018-08-05] MEDS: MELATONIN 3 MG TABLET 6 MG PO (22:53)
[2018-08-05] MEDS: Atorvastatin Calcium 40 MG Tablet PO (22:54)
[2018-08-05 23:17] LABS: Bedside Glucose 260 mg/dL (70-110)
[2018-08-06] VITALS (9 sets, daily range): BP systolic 117–143; BP diastolic 57–95; PULSE 70–97; RESP 16–22; TEMP 36.7–37.6; O2SAT 95–98
[2018-08-06] MEDS: Cephalexin 500 MG Capsule PO ×4 (00:13→17:39)
[2018-08-06] MEDS: traMADol 50 MG Tablet 100 MG PO ×3 (04:53→21:45)
[2018-08-06] MEDS: Acetaminophen 500 MG Tablet 1000 MG PO ×3 (04:53→21:45)
[2018-08-06] MEDS: Insulin Lispro 100 UNIT/ML INSULN.PEN SQ ×4 (06:37→21:52)
[2018-08-06] MEDS: Budesonide Respules 0.5 MG/2 ML AMPUL.NEB. INHALATION ×2 (06:44→19:07)
[2018-08-06] MEDS: Albuterol 2.5 MG/3 ML VIAL.NEB. INHALATION ×3 (06:44→19:07)
[2018-08-06 06:47] LABS: Bedside Glucose 158 mg/dL (70-110)
[2018-08-06 07:51] LABS: Anion Gap 7 (5-15); BUN 16 mg/dL (7-18); BUN/Creat Ratio 21.2 RATIO (10-20); Calcium,Total 7.5 mg/dL (8.5-10.1); Chloride 99 mmol/L (98-107); Creatinine, Serum 0.76 mg/dL (0.70-1.30); EST Glomerular Filtration Rate 106 mL/min (>60); Est Glom Filt Rate - Afr Amer 128 mL/min (>60); Estimated Creatinine Clearance 64.84 ml/min; Glucose 165 mg/dL (74-106); Potassium 3.2 mmol/L (3.5-5.1); Sodium Level 144 mmol/L (136-145)
[2018-08-06] MEDS: predniSONE 20 MG Tablet PO (08:40)
[2018-08-06] MEDS: Ferrous Sulfate 325 MG Tablet PO (08:40)
--- NOTE | 2018-08-06 09:15 | PN_ITS ---
Subjective: Patient was seen and examined. No acute events overnight. He feels much improved. Denies any fever or chills. 12 point review of systems is negative except for pain in the right lower extremity that is better, occasional cough. Objective: Physical Exam General: Alert, Oriented x3, Cooperative, No apparent distress, - - On 2 L of oxygen HEENT: Atraumatic, PERRLA, EOMI, Normocephalic Oral: Moist Mucosa Neck: Supple, No JVD, Negative Carotid Bruits Lungs: Normal air movement, Diminished Cardiovascular: Regular rate, Regular Rhythm, Normal S1, Normal S2, No murmurs Abdomen: Bowel Sounds Present, Soft, Non Tender, Non-Distended, No Hepato- splenomegaly, Obese Extremities: Edema - Generalized edema, +3-+4 in both upper extremities and lower extremity Skin: No breakdown, - - Bruising over the right lower leg and thigh, erythema of the skin, differential warmth, Chronic ulcers over the right lower extremities, venous, about 2, measures about 5 x 6 cm each, minimal discharge, serosanguineous, MARTINE wraps to legs Musculoskeletal: No Tenderness to Palpation of Joints or Extremities Lymphatic: No Cervical, Supraclavicular, or Inguinal Adenopathy Neurological: Cranial nerves II-XII grossly intact Psych/Mental Status: Normal Affect, Appropriate Vitals/I&O's: Vital Signs Temp Pulse Resp BP Pulse Ox 98.0 F 86 18 133/78 H 95 08/06/18 08:32 08/06/18 08:32 08/06/18 08:32 08/06/18 08:32 08/06/18 08:32 Oxygen Flow Rate (L/min) 2 Oxygen Delivery Method Nasal Cannula Weight: 152.7 kg Body Mass Index (BMI) 47.0 Intake and Output for Last 24 Hours 08/04/18 08/05/18 08/06/18 23:59 23:59 23:59 Intake Total 690 / 690 1399 / 1399 300 / 300 Output Total 1200 / 1200 600 / 600 Balance -510 / -510 799 / 799 300 / 300 Microbiology Past 72 Hours 08/03/18 17:25 Wound - Leg, Right Gram Stain - Final 08/03/18 17:25 Wound - Leg, Right Wound Culture - Final Pseudomonas aeroginosa Corynebacterium striatum 08/03/18 15:00 Blood Culture (Wb) - Anticubital Right Blood Culture - Preliminary No growth in 48 hours. 08/03/18 15:00 Blood Culture (Wb) - Anticubital Left Blood Culture - Preliminary No growth in 48 hours. Laboratory Results 08/05/18 05:16: Hemoglobin A1c 9.4 H 08/05/18 12:30: POC Glucose 301 H 08/05/18 16:08: POC Glucose 259 H 08/05/18 22:58: POC Glucose 260 H 08/06/18 06:35: Sodium 144, Potassium 3.2 L, Chloride 99, Carbon Dioxide 38.0 H, Anion Gap 7, BUN 16, Creatinine 0.76, Estim Creat Clear Calc 64.84, Est GFR (MDRD) Af Amer 128, Est GFR (MDRD) Non-Af 106, BUN/Creatinine Ratio 21.2 H, Glucose 165 H, Calcium 7.5 L 08/06/18 06:35: POC Glucose 158 H Current Medications Acetaminophen (Tylenol) 1,000 mg PO Q8 [facility] Last Admin: 08/06/18 04:53 Dose: 1,000 mg Albuterol Sulfate (Ventolin Aerosols) 2.5 mg INHALATION Q6HWA.RT [facility] Last Admin: 08/06/18 06:44 Dose: 2.5 mg Albuterol/Ipratropium (Duoneb) 3 ml INHALATION Q4H PRN PRN PRN Reason: Asthma Alendronate Sodium (Fosamax) 70 mg PO Q7D@0700 [facility] Apixaban (Eliquis) 5 mg PO BID [facility] Last Admin: 08/05/18 22:53 Dose: 5 mg Atorvastatin Calcium (Lipitor) 40 mg PO QHS [facility] Last Admin: 08/05/18 22:54 Dose: 40 mg Budesonide (Pulmicort Aerosol) 0.5 mg INHALATION Q12H.RT [facility] Last Admin: 08/06/18 06:44 Dose: 0.5 mg Cephalexin (Keflex) 500 mg PO Q6 [facility] Last Admin: 08/06/18 04:53 Dose: 500 mg Dextrose (D50w Syringe) 0 gm IV X1 PRN; Protocol PRN Reason: Hypoglycemia Duloxetine HCl (Cymbalta) 30 mg PO BID [facility] Last Admin: 08/05/18 22:54 Dose: 30 mg Ferrous Sulfate (Ferrous Sulfate) 325 mg PO DAILYCM MELISSA Last Admin: 08/06/18 08:40 Dose: 325 mg Finasteride (Proscar) 5 mg PO DAILY [facility] Last Admin: 08/05/18 10:31 Dose: 5 mg Furosemide (Lasix) 40 mg IV BID@1000,1800 [facility] Last Admin: 08/05/18 17:23 Dose: 40 mg Glucagon () 1 mg IM .X1 PRN PRN Reason: Hypoglycemia Insulin Glargine (Lantus (Bk)) 38 units SC QHS [facility] Last Admin: 08/05/18 23:01 Dose: 38 units Insulin Human Lispro (Humalog Kwikpen ([facility])) 0 unit SQ ACHS [facility]; Protocol Last Admin: 08/06/18 06:37 Dose: 1 unit Linagliptin (Tradjenta) 5 mg PO DAILY [facility] Last Admin: 08/05/18 10:31 Dose: 5 mg Magnesium Hydroxide (Milk Of Magnesia) 30 ml PO DAILY PRN PRN PRN Reason: Constipation Melatonin (Melatonin) 6 mg PO QHS [facility] Last Admin: 08/05/18 22:53 Dose: 6 mg Metoprolol Succinate (Toprol Xl (Beta Gamal)) 50 mg PO DAILY [facility] Last Admin: 08/05/18 10:31 Dose: 50 mg Montelukast Sodium (Singulair) 10 mg PO QHS [facility] Last Admin: 08/05/18 22:53 Dose: 10 mg Nystatin (Mycostatin Powder) 1 applic TOPICAL BID [facility]; Protocol Last Admin: 08/05/18 23:03 Dose: 1 applicatio Oxybutynin Chloride (Ditropan) 5 mg PO DAILY [facility] Last Admin: 08/05/18 10:31 Dose: 5 mg Pantoprazole Sodium (Protonix) 20 mg PO DAILY [facility] Last Admin: 08/05/18 10:31 Dose: 20 mg Potassium [facility] Admin: 08/06/18 08:40 Dose: 10 meq Potassium Chloride (K-Dur) 40 meq PO X1 ONE Stop: 08/06/18 09:14 [facility]one () [facility] Last Admin: 08/06/18 08:40 Dose: 20 mg Pregabalin (Lyrica) 200 mg PO BID [facility] Last Admin: 08/05/18 22:53 Dose: 200 mg Psyllium Hydrophilic Mucilloid (Metamucil) 1 packet PO DAILY PRN PRN PRN Reason: CONSTIPATION Tamsulosin HCl (Flomax) 0.4 mg PO DAILY@1730 [facility] Last Admin: 08/05/18 16:48 Dose: 0.4 mg Throat Lozenges (Cepacol Sore Throat Lozenge) 1 lozenge MUCOUS MEM Q2H PRN PRN PRN Reason: DRY MOUTH Last Admin: 08/05/18 14:51 Dose: 1 lozenge Tramadol HCl (Ultram) 100 mg PO TID [facility] Last Admin: 08/06/18 04:53 Dose: 100 mg Trazodone HCl (Desyrel) 100 mg PO QHS [facility] Last Admin: 08/05/18 22:53 Dose: 100 mg Medical Necessity - Tobacco Use Smoking Status: Former smoker Tobacco Use: Non-smoker Assessment/Plan All Active Problems Cellulitis of right lower extremity (Acute) 78 year old M with past medical history of morbid obesity, COPD on 2 L of oxygen, hypertension, hyperlipidemia, type II DM, on insulin, chronic atrial fibrillation on Eliquis who comes in, referred from the wound center for right lower extremity swelling and redness. 1. Right lower extremity cellulitis, without sepsis, history of chronic ulcers on hutchinson and knee Wound cultures growing Pseudomonas which is pansensitive ID consulted, on Keflex Plan: Admit to Medr floor, elevate extremity, IV cefazolin, ID consult, IV diuretics 2. Right lower leg chronic ulcers, venous, status post fall, likely related to bilateral leg edema, continue with wound care, daily dressings 3. Acute heart failure with preserved EF, EF 65%, 4. Hypokalemia, replaced, recheck in a.m. 5. Hypertension, controlled, continue on metoprolol, Amlodipine held on account of lower extremity edema, continue to monitor vitals 6. Type II DM, blood sugars are controlled, Metformin on hold, on Januvia, Lantus insulin, 7. Morbid obesity, BMI 48.0, diet and exercise is recommended 8. Chronic atrial fibrillation, rate controlled, on metoprlol and Eliquis 9. Hyperlipidemia, on statin, will continue same 10. COPD with chronic hypoxic respiratory failure, on 2 L oxygen, continue on Breo, breathing treatment, Singulair, prednisone 11. Depression, on trazodone 12. DVT PPx- on Apixaban 13. DisPosition[facility] Code Visit Inpatient E&M: 69285 Subs Hosp L2
[2018-08-06 09:33] LABS: Absolute Lymphocyte Count 0.74 X10^3/ul (0.83-4.51); Absolute Neutrophil Count 7.2 X10^3/uL (2.0-7.7); Basophil# 0.01 X10^3/uL; Basophil% 0.1 % (0-1); Eosinophil# 0.09 X10^3/uL; Hematocrit 29.1 % (40-54); Hemoglobin 8.8 g/dl (13.0-16.5); Lymphocyte # 0.74 X10^3/ul (4.0); Lymphocyte % 7.9 % (19-41); Mean Corp Hgb Conc 30.2 g/gl (32-36); Mean Corpuscular Hgb 29.2 pg (27.0-32.0); Mean Corpuscular Volume 96.7 fL (80-94); Mean Platelet Vol. 9.5 fl (6.2-12.0); Monocyte# 1.25 X10^3/uL; Monocyte% 13.4 % (0-10); Neutrophil # 7.23 X10^3/uL (2.7-7.7); Neutrophil % 77.2 % (47-70); POSITIVE COUNT NO; POSITIVE DIFFERENTIAL NO; POSITIVE MORPHOLOGY NO; Platelet Count 210 K/mm3 (150-450); RBC Distribution Width CV 15.3 % (11.6-14.6); RBC Distribution Width SD 53.7 fl (35.1-43.9); Red Blood Count 3.01 M/mm3 (4.6-6.2); White Blood Count 9.4 K/mm3 (4.4-11.0)
[2018-08-06] MEDS: APIXABAN 5 MG TABLET PO ×2 (10:15→21:48)
[2018-08-06] MEDS: Oxybutynin 5 MG Tablet PO (10:15)
[2018-08-06] MEDS: DULoxetine Hcl 30 MG Capsule PO ×2 (10:15→21:46)
[2018-08-06] MEDS: Furosemide 40 MG/4 ML Vial IV ×2 (10:16→17:39)
[2018-08-06] MEDS: Pregabalin 50 MG Capsule 200 MG PO ×2 (10:16→21:45)
[2018-08-06] MEDS: Finasteride 5 MG Tablet PO (10:17)
[2018-08-06] MEDS: Nystatin Powder 15gm Bottle 1 APPLIC TOPICAL ×2 (10:17→21:51)
[2018-08-06] MEDS: Metoprolol(XL)Succ 50 MG Tablet PO (10:17)
[2018-08-06] MEDS: Pantoprazole Sodium 20 MG Tablet PO (10:17)
[2018-08-06] MEDS: LINAGLIPTIN 5 MG TABLET PO (10:17)
[2018-08-06 11:37] LABS: Bedside Glucose 240 mg/dL (70-110)
--- NOTE | 2018-08-06 11:40 | CASEMGMT ---
THEE spoke w/physician, she states pt can be discharged tomorrow, and she states pt should go to the half-way side rather than assisted living. THEE spoke w/pt, let pt know that he will be able to be discharged tomorrow and that the physician is stating he should go to the half-way side rather than the assisted living side. Pt is in agreement, states will call his son. SW offered to call son, pt is agreeable. SW also explained will set up transportation to take pt back. THEE called pt's son Sacha, let him know that pt can return to [facility], but will go to the intermediate side tomorrow rather than to the assisted living. SW let son know it would be covered by Medicare. Sacha states he does not understand why pt cannot return to the assisted living, thinks this would be better for pt. He states pt went to the half-way side in the past, a year and a half ago and did not like him. Son states they have a whole new rehab part by the [facility].
--- NOTE | 2018-08-06 12:01 | CASEMGMT ---
Addendum entered by Crystal Frye 08/06/18 13:50: [facility] did fax over POA form, it is a form for Financial POA,naming Constance Hernandez. This form does contain a provision that states pt's agent is designated as pt's personal underwriting sales representative as defined by HIPAA, and therefore covered entities, such as health care providers, should treat agent as himself pursuant to the HIPAA privacy regulations. Form is on the paper chart for reference. PUSHPA Babcock, WILDLIFE OFFICER Original Note: Addendum entered by Crystal Frye 08/06/18 12:57: [facility] faxed over demographics, did not receive POA papers yet. On the demographics, Constance Hernandez is listed as POA--financial. Number is [phone]. PUSHPA Babcock, WILDLIFE OFFICER Original Note: Addendum entered by Crystal Frye 08/06/18 12:24: Son gave SW pt's supplemental information, pt has [employer] Medicare, group #:[id number], ID#: [id number]. SW left a message in patient financial services with this information. Crystal BARROW, WILDLIFE OFFICER Original Note: THEE spoke w/physician, she states pt can be discharged tomorrow, and she states pt [place] go [place] [facility] rather than assisted living. THEE spoke w/pt, let pt know that he will be able to be discharged tomorrow and that the physician is stating he should go to the [place] [facility] rather than the assisted living side. Pt is in agreement, states will call his son. SW offered to call son, pt is agreeable. SW also explained will set up transportation to take pt back. THEE called pt's son Sacha, let him know that pt can return to [facility], but will go to the [facility] side tomorrow rather than to the assisted living. SW let son know it would be covered by Medicare. Sacha states he does not understand why pt cannot return to the assisted living, thinks this would be better for pt. He states pt went [facility] the [place] in the past, a year and a half ago and did not like him. Son states they have a whole new rehab part [facility]. SW reviewed the therapy notes w/son and explained it appears he is needing more assist at present, walking 20 feet. Son states that in the past when pt could not walk to meals they would wheel pt to dinner. He states they were already caring for pt's legs. SW explained that pt would get more therapy in the rehab side. Son continued to state that he thought pt should go back to assisted living and does not understand why pt should go to the [facility]. SW explained would call the [facility] and see if they feel they can manage pt's needs or not. SW also explained when pt goes back we will set up transportation to take pt back. Son states pt has a wheelchair here and this needs to go back w/him. SW explained we will set up a w/c van to bring pt back then, and pt will be charged for this. Son asked why [facility] could not pick remover pt as they have vans. SW explained that the vans do not likely run on the weekend and they are for taking patients to appointments, not picking up patients from the hospital. SW explained to son will call [facility] and speak w/them, to see if they feel they can manage pt's care needs. SW called [facility], spoke w/nurse Izaguirre. She states it not certain if they can manage pt's care needs, to call JE[facility] Rodriguez. She also states that son is not POA, pt has an apparel stock checker as POA. She faxed SW the apparel stock checker's information however we do not at present have POA papers that real estate leasing agent is POA. Pt told staff at admission his son is POA. SW called [facility] Tinajero. She states pt's care needs are indeed to great at this time and pt should really go to the [facility] for rehab. She states they were struggling to meet pt's care needs before he was admitted. She states that they have the POA forms in pt's chart at [facility] and will fax them over to hospital later today. She also confirmed that transportation from there is for appointments and during the week. Karlee also states pt would get therapy 2-3 times per week in [facility], and will get it 5-6 times in rehab [facility]. SW called son back, message left, he called back. SW explained to son that as per the director instrumentation at [facility], pt's care needs cannot be met in the AL. SW also explained pt will get therapy more often in rehab, 5-6 times per week vs 2-3 times at the AL. Son is now in agreeable to pt going to rehab at [facility]. He inquired if pt would need to pay for [place] and the [place] [facility]. SW explained the [place] benefit under Medicare. SW explained would need to check w/[facility] if pt needs to pay for the [facility] while he is in the [facility]. Green sheet on chart w/transport form and hospital exemption, and SW asked RN to put the POA papers on the chart should they be faxed over after this SW leaves the floor. PUSHPA Babcock, WILDLIFE OFFICER
[2018-08-06] MEDS: Magnesium Hydroxide 30 ML UDC PO (15:47)
[2018-08-06 16:12] LABS: Bedside Glucose 336 mg/dL (70-110)
[2018-08-06] MEDS: Tamsulosin HCl 0.4 MG Capsule PO (17:39)
[2018-08-06] MEDS: traZODone 100 MG Tablet PO (21:46)
[2018-08-06] MEDS: MELATONIN 3 MG TABLET 6 MG PO (21:46)
[2018-08-06] MEDS: Montelukast 10 MG Tablet PO (21:46)
[2018-08-06] MEDS: Atorvastatin Calcium 40 MG Tablet PO (21:46)
[2018-08-06 22:07] LABS: Bedside Glucose 256 mg/dL (70-110)
[2018-08-07] MEDS: Cephalexin 500 MG Capsule PO ×2 (01:01→06:40)
[2018-08-07 03:40] VITALS: BP 139/91; PULSE 91; RESP 16; TEMP 36.4; O2SAT 99
[2018-08-07] MEDS: Acetaminophen 500 MG Tablet 1000 MG PO (06:40)
[2018-08-07] MEDS: traMADol 50 MG Tablet 100 MG PO (06:40)
[2018-08-07 06:47] VITALS: PULSE 93; RESP 22; O2SAT 98
[2018-08-07] MEDS: Albuterol 2.5 MG/3 ML VIAL.NEB. INHALATION (06:47)
[2018-08-07] MEDS: Budesonide Respules 0.5 MG/2 ML AMPUL.NEB. INHALATION (06:47)
[2018-08-07 06:52] LABS: Bedside Glucose 141 mg/dL (70-110)
--- NOTE | 2018-08-07 07:39 | TREXTCAR_ITS ---
- Diet 08/03/18 16:35 Diet: Calorie Controlled How many daily calories?: 2000 calorie 1500 Fluid restriction - Routine Orders/Code Status O2 Liters per Minute: 1-2 O2 Frequency: Continuous Keep PO Greater than or Equal to (%): 94 - Encourage use of incentive spirometer Routine Lab Work: CBC - within 3 days, BMP - within 3 days Code Status: Full Code - Wound(s) RT ARM Wound Type: SCABS AND SKIN TEARS RT KNEE Wound Type: abrasion s/p fall Dressing Change: Adaptic RT MID LATERAL LEG Wound Type: Skin Tear RIGHT MEDIAL B[place]INGSLEY Wound Type: traumatic injury s/p fall Dressing Change: Aquacel AG - Therapies Weight Bearing: Weight bearing as tolerated Extremity Affected:: Right Lower Physical Therapy: Eval and Treat Occupational Therapy: Eval and Treat - Problem/Diagnosis (1) Traumatic open wound of right lower leg with delayed healing Status: Chronic Current Visit: No (2) Ulcer of left lower extremity, limited to breakdown of skin Status: Chronic Current Visit: No (3) Type 2 diabetes mellitus Status: Chronic Current Visit: No (4) Bilateral lower extremity edema Status: Chronic Current Visit: No (5) Cellulitis of right lower extremity Status: Acute Current Visit: No (6) COPD (chronic obstructive pulmonary disease) Status: Chronic Current Visit: Yes - Allergies/Procedures Done in Hospital Allergies/Adverse Reactions: Allergies No Known Allergies Allergy (Verified 08/03/18 14:00) Procedures: None - Type of Care/Length of Stay Estimated LOS: Convalescent Care Less Than 30 days Type of Care Needed: Skilled Rehab Potential: Good Prognosis: Good - Additional Orders/Day of Discharge Day of Discharge: 08/07/18 - Follow Up Care Primary Care Physician: Matthieu Angelo MD [Primary Care Provider] - Please follow up with your Primary Care Physician in: within 1-2 weeks of discharge [facility]
--- NOTE | 2018-08-07 07:41 | DS.PCM_ITS ---
Discharge Date and Diagnosis Date of Admission: 08/03/18 Date of Discharge: 08/07/18 - Primary Discharge Diagnosis Right lower leg cellulitis Acute on chronic leg ulcers Acute heart failure with preserved EF Hypokalemia - Secondary Discharge Diagnosis Chronic Problems Traumatic open wound of right lower leg with delayed healing (Chronic) Ulcer of left lower extremity, limited to breakdown of skin (Chronic) Type 2 diabetes mellitus (Chronic) Bilateral lower extremity edema (Chronic) COPD (chronic obstructive pulmonary disease) (Chronic) Hospital Course and Treatment Imaging Results: Clinical Impression(s) from Imaging Studies Knee X-Ray 08/03/18 13:15 IMPRESSION: Diffuse soft tissue swelling. Small joint effusion. Status post total knee replacement. Electronically Signed: Michael Michaud MD at 14:04 EST , Service support , Tibia/Fibula X-Ray 08/03/18 13:15 IMPRESSION: Diffuse soft tissue swelling. Electronically Signed: Michael Michaud MD at 14:05 EST , Service support , Consultations 08/03/18 16:23 Consult: Onc/Wound/grid caster Routine Comment: Operations: None Procedures: None Summary of Care Provided: 78 year old M with past medical history of morbid obesity, COPD on 2 L of oxygen, hypertension, hyperlipidemia, type II DM, on insulin, chronic atrial fibrillation on Eliquis who comes in, referred from the wound center for right lower extremity swelling and redness. Patient was managed on IV cefazolin, ID was consulted, continued on IV diuretics. Wound RN was consulted for chronic venous ulcers. Patient continued to improve. He was found to be significantly volume overloaded and was managed as an acute on chronic heart failure with preserved EF. He had hypokalemia that was replaced. His blood sugars remained stable. Patient was seen by PT and OT and discharged to a residential facility prior to discharge to his assisted living facility. Subjective: On the day of discharge, patient was seen and examined. No new complaints. Denies chest pain or dizziness or shortness of breath. On his home 2 L of oxygen Objective: Physical Exam General: Alert, Oriented x3, Cooperative, No apparent distress, - - On 2 L of oxygen HEENT: Atraumatic, PERRLA, EOMI, Normocephalic Oral: Moist Mucosa Neck: Supple, No JVD, Negative Carotid Bruits Lungs: Normal air movement, Diminished Cardiovascular: Regular rate, Regular Rhythm, Normal S1, Normal S2, No murmurs Abdomen: Bowel Sounds Present, Soft, Non Tender, Non-Distended, No Hepato-splenomegaly, Obese Extremities: Edema - Generalized edema, +3-+4 in both upper extremities and lower extremity Skin: No breakdown, - - Bruising over the right lower leg and thigh, erythema of the skin, differential warmth, Chronic ulcers over the right lower extremities, venous, about 2, measures about 5 x 6 cm each, minimal discharge, serosanguineous, MARTINE wraps to legs Musculoskeletal: No Tenderness to Palpation of Joints or Extremities Lymphatic: No Cervical, Supraclavicular, or Inguinal Adenopathy Neurological: Cranial nerves II-XII grossly intact Psych/Mental Status: Normal Affect, Appropriate - Physical Exam Vital Signs Temp Pulse Resp BP Pulse Ox 97.6 F L 93 22 H 139/91 H 98 08/07/18 03:40 08/07/18 06:47 08/07/18 06:47 08/07/18 03:40 08/07/18 06:47 Oxygen Flow Rate (L/min) 2 Oxygen Delivery Method Nasal Cannula Weight: 152.4 kg Body Mass Index (BMI) 47.0 Intake and Output for Last 24 Hours 08/05/18 08/06/18 08/07/18 23:59 23:59 23:59 Intake Total 1399 / 1399 300 / 300 670 / 670 Output Total 600 / 600 1000 / 1000 800 / 800 Balance 799 / 799 -700 / -700 -130 / -130 Microbiology Past 72 Hours 08/03/18 17:25 Gram Stain - Final Wound - Leg, Right Wound Culture - Final Pseudomonas aeroginosa Corynebacterium striatum Anaerobic Culture - Preliminary No growth in 48 hours. 08/03/18 15:00 Blood Culture - Preliminary Blood Culture (Wb) - Anticubital Right No growth in 48 hours. 08/03/18 15:00 Blood Culture - Preliminary Blood Culture (Wb) - Anticubital Left No growth in 48 hours. Laboratory Tests Past 24 Hrs 08/06/18 08/06/18 06:35 06:35 WBC 9.4 RBC 3.01 L Hgb 8.8 L Hct 29.1 L MCV 96.7 H MCH 29.2 MCHC 30.2 L RDW 15.3 H RDW Differential 53.7 H Plt Count 210 MPV 9.5 Immature Gran % (Auto) 0.400 Neut % (Auto) 77.2 H Lymph % (Auto) 7.9 L Emanuel % (Auto) 13.4 H Eos % (Auto) 1.0 Baso % (Auto) 0.1 Absolute Neuts (auto) 7.2 Absolute Lymphs (auto) 0.74 L Total Counted Not Reportable Sodium 144 Potassium 3.2 L Chloride 99 Carbon Dioxide 38.0 H Anion Gap 7 BUN 16 Creatinine 0.76 Estim Creat Clear Calc 64.84 Est GFR (MDRD) Af Amer 128 Est GFR (MDRD) Non-Af 106 BUN/Creatinine Ratio 21.2 H Glucose 165 H Calcium 7.5 L POC Glucose 08/07/18 08/06/18 08/06/18 06:37 21:41 16:02 POC Glucose 141 H 256 H 336 H 08/06/18 11:16 POC Glucose 240 H Discharge Diet: Low fat/ Low Cholesterol, 2000 mg Sodium Diet Discharge Activity: Return to Normal Activity Home Medications: Medications to take at Discharge Alendronate Sodium [Fosamax] 70 mg PO TEMPLE 07/07/18 Amino Acids/Protein Hydrolys [Prosource No Carb Liquid Pkt] 30 ml PO BID 07/07/18 Apixaban [Eliquis] 5 mg PO BID 07/07/18 Atorvastatin Calcium [Lipitor] 40 mg PO QHS 07/07/18 Duloxetine HCl 30 mg PO BID 07/07/18 Dutasteride/Tamsulosin HCl [Dutasteride-Tamsulosin 0.5-0.4] 1 each PO DAILY 07/07/18 Ferrous Sulfate 325 mg PO DAILY 07/07/18 Fluticasone/Vilanterol [Breo Ellipta 200-25 Mcg INH] 1 each IH DAILY 07/07/18 Furosemide [Lasix] 40 mg PO BIDLX 07/07/18 Insulin Glargine,Hum.rec.anlog [Lantus] 38 unit SQ QHS 07/07/18 Ipratropium/Albuterol Sulfate [Iprat-Albut 0.5-3(2.5) mg/3 ml] 3 ml IH Q4H PRN PRN 07/07/18 Metformin HCl [Glucophage] 1,000 mg PO BIDCM 07/07/18 Metoprolol(XL)Succ [Toprol Xl (Beta Gamal)] 50 mg PO DAILY 07/07/18 Montelukast [Singulair] 10 mg PO DAILY 07/07/18 Omeprazole [Prilosec] 20 mg PO DAILY 07/07/18 Oxybutynin [Ditropan] 5 mg PO DAILY 07/07/18 Potassium Chloride [K-Dur] 10 meq PO DAILY 07/07/18 Prednisone 20 mg PO DAILY@1200 07/07/18 Pregabalin [Lyrica] 200 mg PO BID 07/07/18 Sitagliptin Phosphate [Januvia] 100 mg PO DAILY 07/07/18 traZODone [Desyrel] 100 mg PO QHS 07/07/18 Acetaminophen [Tylenol] 1,000 mg PO Q8H PRN PRN 08/03/18 Collagenase [Santyl] 1 applic TOPICAL DAILY 08/03/18 Lactobacillus Acidophilus [Acidophilus] 1 cap PO BID 08/03/18 Albuterol Aerosols [Ventolin Aerosols] 2.5 mg INHALATION Q6HWA.RT vial.neb. 08/07/18 Cephalexin [Keflex] 500 mg PO Q6 capsule 08/07/18 Finasteride [Proscar] 5 mg PO DAILY tablet 08/07/18 Guaifenesin [Mucinex] 1,200 mg PO BID PRN #0 08/07/18 Nystatin Powder [Mycostatin Powder] 1 applic TOPICAL BID bottle 08/07/18 Tamsulosin HCl [Flomax] 0.4 mg PO DAILY@1730 capsule 08/07/18 traMADol [Ultram] 100 mg PO TID 5 Days #10 tab 08/07/18 Following Prescrptions Were Given to Patient: traMADol [Ultram] 100 mg PO TID 5 Days #10 tab Primary Care Physician: Matthieu Angelo MD [Primary Care Provider] - Please follow up with your Primary Care Physician in: within 1-2 weeks of discharge from residential facility Disposition: Senior Living facility Minutes spent on discharge:: 40 Patient Condition:: Stable Medical Necessity - Tobacco Use Smoking Status: Former smoker Tobacco Use: Non-smoker Meaningful Use Info Meaningful Use Diagnoses (Choose all that apply): None applicable Code Visit Inpatient E&M: 75095 Disch Hosp
[2018-08-07 08:18] LABS: Anion Gap 5 (5-15); BUN 19 mg/dL (7-18); BUN/Creat Ratio 26.4 RATIO (10-20); Calcium,Total 7.1 mg/dL (8.5-10.1); Chloride 100 mmol/L (98-107); Creatinine, Serum 0.72 mg/dL (0.70-1.30); EST Glomerular Filtration Rate 112 mL/min (>60); Est Glom Filt Rate - Afr Amer 136 mL/min (>60); Estimated Creatinine Clearance 64.84 ml/min; Glucose 131 mg/dL (74-106); Potassium 3.4 mmol/L (3.5-5.1); Sodium Level 143 mmol/L (136-145)
[2018-08-07 08:30] VITALS: BP 135/80; PULSE 92; RESP 18; TEMP 37; O2SAT 95
[2018-08-07] MEDS: Ferrous Sulfate 325 MG Tablet PO (08:35)
[2018-08-07] MEDS: predniSONE 20 MG Tablet PO (08:35)
--- NOTE | 2018-08-07 08:46 | PCA ---
Transport set up through [facility] via cot. Informed primary RN, Swapnil, and pt's son Sacha Church of this information. Faxed transfer to extended care forms to [facility].
== END 2018-08-07 09:15 | disposition skilled nursing facility (03) | DRG 570 ==
LOC: ED 14:21 → MS3 15:46
PROVIDERS: Admitting Provider Internal Medicine; Emergency Provider Emergency Medicine; Family Provider Family Medicine; PCP Family Medicine; Visit Provider Internal Medicine
DX: L03.115 Cellulitis of right lower limb (principal); I50.33 Acute on chronic diastolic (congestive) heart failure; Z68.42 Body mass index [BMI] 45.0-49.9, adult; J96.11 Chronic respiratory failure with hypoxia; L97.812 Non-pressure chronic ulcer of other part of right lower leg with fat layer exposed; E11.622 Type 2 diabetes mellitus with other skin ulcer; Z23 Encounter for immunization; E66.01 Morbid (severe) obesity due to excess calories; I48.2 Chronic atrial fibrillation; E78.5 Hyperlipidemia, unspecified; J44.9 Chronic obstructive pulmonary disease, unspecified; Z99.81 Dependence on supplemental oxygen; E11.9 Type 2 diabetes mellitus without complications; F32.9 Major depressive disorder, single episode, unspecified; S81.801A Unspecified open wound, right lower leg, initial encounter; W01.0XXA Fall on same level from slipping, tripping and stumbling without subsequent striking against object, initial encounter; Y92.099 Unspecified place in other non-institutional residence as the place of occurrence of the external cause; Z79.899 Other long term (current) drug therapy; Z79.52 Long term (current) use of systemic steroids; Z79.01 Long term (current) use of anticoagulants; Z79.4 Long term (current) use of insulin; Z87.891 Personal history of nicotine dependence; E87.6 Hypokalemia; I11.0 Hypertensive heart disease with heart failure; R60.0 Localized edema
CPT/HCPCS: 11042; 36415; 73560; 73590; 80048; 80076; 82962; 83036; 83540; 83550; 85025; 87040; 87070; 87075; 87077; 87186; 87205; 87640; 93306; 93971; 94640; 97110; 97162; 97163; 97166; 97530; 99284; J7040; Q9957; 90686; A4216; C8929; J1940

== ENCOUNTER 2018-08-10 10:30 | Outpatient (RCR) | payer MEDICARE, OTHER, SELFPAY ==
[2018-07-29 01:40] VITALS: BP 148/88; PULSE 90; RESP 18; TEMP 36.7
[2018-08-03 11:21] VITALS: BP 121/73; PULSE 91; RESP 18; TEMP 36.4
--- NOTE | 2018-08-03 13:14 | PN.PCM_ITS ---
(1) Cellulitis of right lower extremity Status: Acute Current Visit: Yes Code(s): L03.115 - Cellulitis of right lower limb (2) Traumatic open wound of right lower leg with delayed healing Status: Chronic Current Visit: Yes Code(s): S81.801D - Unspecified open wound, right lower leg, subsequent encounter (3) Type 2 diabetes mellitus Status: Chronic Current Visit: Yes Code(s): E11.9 - Type 2 diabetes mellitus without complications (4) Ulcer of left lower extremity, limited to breakdown of skin Status: Chronic Current Visit: No Code(s): L97.921 - Non-pressure chronic ulcer of unspecified part of left lower leg limited to breakdown of skin (5) Bilateral lower extremity edema Status: Chronic Current Visit: Yes Code(s): R60.0 - Localized edema Type of Wound Chief Complaint: Nonhealing right lower extremity wound (traumatic). Left lower extremity ulcer. History of Wound: Mr. Church is a 78-year-old with past medical history as stated above who presented to the wound center due to delayed healing of his traumatic right lower extremity wound. Said to have started about a month ago when he fell off his bed and bumped his hutchinson against his walker and dresser. He was subsequently seen in the emergency room and had stitches applied with some part of the wound healing however the medial half has failed to heal. He states that at his facility silver dressing has been applied daily with some form of compression. He denies significant pain or drainage from the wound. He is unsure of his diabetes control. He feels well otherwise and denies chills, fever or feeling of unwell. Progress of Wound: Mr. Church presents for follow-up/management of his bilateral lower extremity wounds however he has not been here in almost a month. He now presents with a new right knee wound after a fall and significant right lower extremity ecchymosis, swelling and pain. He states that he fell at his assisted living apartment about 5 days ago. He has not been seen concerning this. - Physical Exam Vital Signs Temp Pulse Resp BP 97.5 F L 91 18 121/73 H 08/03/18 11:21 08/03/18 11:21 08/03/18 11:21 08/03/18 11:21 General: Alert, Oriented x3, Cooperative, No apparent distress HEENT: Atraumatic, Normocephalic Oral: Moist Mucosa Neck: Supple Lungs: Normal air movement Extremities: No cyanosis, Edema, Tenderness Skin: Ulcer/ Wound Wound Measurements and Assessment WC - Nurse 1 - General Ulcer Measurement Start: 08/03/18 11:14 Freq: Status: Active Protocol: Activity Type Activity Date Activity User E-Sign Co-Sign Detail Recorded Client Recorded Date Recorded By Document 08/03/18 11:21 [facility] [id number] 08/03/18 11:41 [facility] 08/03/18 11:21 Wound Center Nurse 1 [Ulcer Assessment] #3- RT KNEE -Combined with other wound No -Current Size (cm) - Length 4 -Current Size (cm) - Width 2.3 -Current Size (cm) - Depth 0.1 -Total Square Cm 9.2 -Date of Last Picture (Recall this 08/03/18 field) -Photo Taken Yes -Epithelialization None Present -Tunneling No -Undermining/Tunneling No -Circular Undermining No -Exudate Amt Small -Exudate Type Sanguineous -Wound Margin Flat & Intact -Granulation Amt Small (1-33%) -Granulation Quality Red -Slough/Fibrin Yes -Necrosis Amt Large (67-100%) -Necrotic Tissue Type Adherent Slough -Texture (Mariia-wound Skin Appearance) Assessed Localized Edema -Moisture (Mariia-wound Skin Appearance Assessed ) -Color (Mariia-wound Skin Appearance) Ecchymosis Erythema -Temperature (Mariia-wound Skin No Abnormality Appearance) (Pt Warm) -Tenderness on Palpation (Mariia-wound Yes Skin Appearance) -Ulcer Cleansing Wound Cleanser -Foul Odor after Cleansing No -Anesthetic Used 4% Lidocaine Solution 2. L medial LE -Combined with other wound No -Current Size (cm) - Length 0 -Current Size (cm) - Width 0 -Current Size (cm) - Depth 0 -Total Square Cm 0 -Date of Last Picture (Recall this 08/03/18 field) -Epithelialization Large 67-100% 1. R ant hutchinson -Combined with other wound No -Current Size (cm) - Length 3.8 -Current Size (cm) - Width 3.5 -Current Size (cm) - Depth 0.7 -Total Square Cm 13.30 -Date of Last Picture (Recall this 08/03/18 field) -Photo Taken Yes -Epithelialization None Present -Tunneling No -Undermining/Tunneling No -Circular Undermining No -Exudate Amt Medium -Exudate Type Serosanguineous -Wound Margin Flat & Intact -Granulation Amt Small (1-33%) -Granulation Quality Red -Necrosis Amt Large (67-100%) -Necrotic Tissue Type Adherent Slough -Texture (Mariia-wound Skin Appearance) Assessed Scarring -Moisture (Mariia-wound Skin Appearance Assessed ) Dry/Scaly -Color (Mariia-wound Skin Appearance) Ecchymosis Erythema -Temperature (Mariia-wound Skin No Abnormality Appearance) (Pt Warm) -Tenderness on Palpation (Mariia-wound No Skin Appearance) -Ulcer Cleansing Wound Cleanser -Foul Odor after Cleansing No -Anesthetic Used 4% Lidocaine Solution [Edema Assessment] -Lower Limb Edema Present Yes -Right Calf (cm) 53.1 -Right Ankle (cm) 28 -Left Calf (cm) 43.5 -Left Ankle (cm) 28 WC - Nurse 2 - General Ulcer CM Notes Start: 08/03/18 11:14 Freq: Status: Active Protocol: Activity Type Activity Date Activity User E-Sign Co-Sign Detail Recorded Client Recorded Date Recorded By Document 08/03/18 12:02 MW [id number] 08/03/18 12:11 MW 08/03/18 12:02 Wound Center Nurse 2 [Procedure/Treatment] #3- RT KNEE -Time 12:03 -Correct Patient Yes -Correct Side, Site, Position Yes -Correct Procedure Yes -Procedure Performed No -Post Debridement Size (cm) - Length 4.0 -Post Debridement Size (cm) - Width 2.3 -Post Debridement Size (cm) - Depth 0.1 -Total Square Cm 9.20 -Wound/Ulcer Outcome Not Healed 2. L medial LE -Time 12:04 -Correct Patient Yes -Correct Side, Site, Position Yes -Correct Procedure Yes -Procedure Performed No -Post Debridement Size (cm) - Length 0 -Post Debridement Size (cm) - Width 0 -Post Debridement Size (cm) - Depth 0 -Total Square Cm 0 -Wound/Ulcer Outcome Healed- Epithelialized 1. R ant hutchinson -Time 12:04 -Correct Patient Yes -Correct Side, Site, Position Yes -Correct Procedure Yes -Procedure Performed Yes -Type of Procedure Debridement -Clinical Debridement Subcutaneous -Post Debridement Size (cm) - Length 4.2 -Post Debridement Size (cm) - Width 1.7 -Post Debridement Size (cm) - Depth 0.4 -Total Square Cm 7.14 -Wound/Ulcer Outcome Not Healed -Ulcer Cleansing Rinsed/ Irrigated with Saline -Foul Odor after Cleansing No -Bioengineered Tissue No -Bleeding Controlled with Pressure -Offloading No -Treatment Response Procedure Tolerated Well [See Physician Procedure note for Specifics] Pain Scale: 0-10 Numeric [Pain] -Is Patient Pain Free? Yes Musculoskeletal: No Muscle Wasting Neurological: Cranial nerves II-XII grossly intact Psych/Mental Status: Normal Affect Debridement Note Post-Debridement Measurements/Treatment WC - Nurse 2 - General Ulcer CM Notes Start: 08/03/18 11:14 Freq: Status: Active Protocol: Activity Type Activity Date Activity User E-Sign Co-Sign Detail Recorded Client Recorded Date Recorded By Document 08/03/18 12:02 MW [id number] 08/03/18 12:11 MW 08/03/18 12:02 Wound Center Nurse 2 #3- RT KNEE -Time 12:03 -Correct Patient Yes -Correct Side, Site, Position Yes -Correct Procedure Yes -Procedure Performed No -Post Debridement Size (cm) - Length 4.0 -Post Debridement Size (cm) - Width 2.3 -Post Debridement Size (cm) - Depth 0.1 -Total Square Cm 9.20 -Wound/Ulcer Outcome Not Healed 2. L medial LE -Time 12:04 -Correct Patient Yes -Correct Side, Site, Position Yes -Correct Procedure Yes -Procedure Performed No -Post Debridement Size (cm) - Length 0 -Post Debridement Size (cm) - Width 0 -Post Debridement Size (cm) - Depth 0 -Total Square Cm 0 -Wound/Ulcer Outcome Healed- Epithelialized 1. R ant hutchinson -Time 12:04 -Correct Patient Yes -Correct Side, Site, Position Yes -Correct Procedure Yes -Procedure Performed Yes -Type of Procedure Debridement -Clinical Debridement Subcutaneous -Post Debridement Size (cm) - Length 4.2 -Post Debridement Size (cm) - Width 1.7 -Post Debridement Size (cm) - Depth 0.4 -Total Square Cm 7.14 -Wound/Ulcer Outcome Not Healed -Ulcer Cleansing Rinsed/ Irrigated with Saline -Foul Odor after Cleansing No -Bioengineered Tissue No -Bleeding Controlled with Pressure -Offloading No -Treatment Response Procedure Tolerated Well Pain Scale: 0-10 Numeric Is Patient Pain Free? Yes Wound debrided: Right hutchinson Wound Grade/Stage: Stage III Type of Debridement: Excisional debridement Anesthesia Used: 4% Lidocaine Solution Depth: Down to and including healthy tissue, in the subcutaneous layer Percentage of wound debrided: 100 Instrument Used: 5mm curette Tissue Removed: Slough and devitalized tissue Severity: Fat Layer Exposed Amount of bleeding with debridement: Mild Bleeding Controlled with: Pressure Patient tolerated procedure well Assessment/Plan Active Problems Traumatic open wound of right lower leg with delayed healing (Chronic) Type 2 diabetes mellitus (Chronic) Bilateral lower extremity edema (Chronic) Cellulitis of right lower extremity (Acute) Assessment: Same as above. Plan: Significant ecchymosis/erythema of his right lower extremity. Edematous, tender with differential warmth. Concerning for cellulitis. Right knee superficial wound also appreciated. Debridement of right hutchinson done as documented above. Procedure was well-tolerated. Continue Fibracol with Adaptic over top. Change daily. Due to my concern for cellulitis, I have advised that he go to the ER. Other wound care management as previously documented. Increased protein intake. SurePress for edema management. Elevate lower extremity when seated in bed. Advised to follow-up in a week. All his questions were answered and he was advised to call with any further questions or concerns. Follow-up in 1 week. This note was generated with [employer] dictation software. It may contain incorrect words, spelling, and punctuation that were not noted in checking the note before signing.
== END 2018-08-25 23:59 ==
LOC: WC 10:30
PROVIDERS: Family Provider Family Medicine; PCP Family Medicine; Visit Provider Internal Medicine
DX: E11.622 Type 2 diabetes mellitus with other skin ulcer (principal); R60.0 Localized edema; L97.812 Non-pressure chronic ulcer of other part of right lower leg with fat layer exposed
CPT/HCPCS: 11042